=== PATIENT | female | born 1950 | race Hispanic/Latino ===

== ENCOUNTER 2017-07-25 18:37 | Inpatient (IN) | payer MEDICARE, OTHER ==
[2017-07-25 19:10] LABS: #Basophils 0.1 thou/uL (0.0-0.2); #Eosinphils 0.3 thou/uL (0.0-0.7); #Lymphocytes 2.3 thou/uL (1.20-3.40); #Monocytes 0.5 thou/uL (0.11-0.59); #Neutrophils 4.3 thou/uL (1.40-6.50); %Basophils 0.7 % (0.0-1.0); %Eosinophils 3.5 % (0.0-10.0); %Lymphocytes 30.9 % (21.0-51.0); %Monocytes 6.5 % (0.0-10.0); %Neutrophils 58.4 % (42.0-75.0); Hemoglobin 6.4 g/dL (12.0-16.0); Mean Corpuscular HGB CONC 32.3 g/dL (32.0-36.0); Mean Corpuscular Hemoglobin 26.2 pg (27.0-31.0); Mean Corpuscular Volume 81.2 fl (81.0-99.0); Mean Platelet Volume 6.7 fL (7.4-10.4); Platelet Count 357 thou/uL (130-400); RBC Distribution Width 14.9 % (11.5-14.5); Red Blood Cell (RBC) Count 2.45 mill/uL (4.20-5.40); White Blood Cell (WBC) Count 7.4 thou/uL (4.8-10.8)
--- NOTE | 2017-07-25 19:28 | RAD ---
CHEST ONE VIEW: 07/25/17 HISTORY: Dyspnea. COMPARISON: None. FINDINGS: Enlarged cardiac silhouette. Bibasilar pleural and parenchymal changes. Adequate aeration of the uppe r lungs. No pneumothorax. IMPRESSION: Bibasilar pleural and parenchymal changes. POS: [facility]
[2017-07-25 19:32] LABS: ALT (SGPT) 20 U/L (8-55); AST (SGOT) 19 U/L (5-34); Albumin 3.1 g/dL (3.4-4.8); Alkaline Phosphatase 200 U/L (40-150); Anion Gap 12 mmol/L (10-20); BUN (Urea Nitrogen) 72 mg/dL (9.8-20.1); Bilirubin, Total Less than 0.2 mg/dL (0.2-1.2); Calc. Creatinine Clearance 0 mL/min (70-130); Calcium 8.5 mg/dL (7.8-10.44); Carbon Dioxide 21 mmol/L (23-31); Chloride 111 mmol/L (98-107); Estimated GFR-MDRD 21; Globulin 2.8 g/dL (2.4-3.5); Glucose 105 mg/dL (80-115); Potassium 4.4 mmol/L (3.5-5.1); Protein, Total 5.9 g/dL (6.0-8.3); Sodium 140 mmol/L (136-145)
[2017-07-25 19:35] LABS: CKMB 3.9 ng/mL (0-6.6); Troponin I 0.013 ng/mL (< 0.028)
[2017-07-25] MEDS ORDERED: HYDROcodone/Acetaminophen 5/325 mg Tablet ONE (20:56)
[2017-07-25 22:32] LABS: Troponin I 0.012 ng/mL (< 0.028)
[2017-07-25] MEDS ORDERED: Ondansetron HCl/PF 4 MG/2 ML Vial IVP PRN (22:58)
[2017-07-25] MEDS ORDERED: Ondansetron ODT 4 MG TAB SL PRN (22:58)
[2017-07-25] MEDS ORDERED: Albuterol Sulfate 2.5 mg/3 ml Neb NEB PRN (22:59)
[2017-07-25 23:13] VITALS: BMI 34.7
[2017-07-26] MEDS ORDERED: Ondansetron ODT 4 MG TAB PO PRN (00:59)
[2017-07-26] MEDS ORDERED: HumaLOG 300 UNITS/3 ML VIAL SC PRN ×2 (00:59)
[2017-07-26] MEDS ORDERED: Dextrose 5% in Water 1,000 ML IV PRN (00:59)
[2017-07-26] MEDS ORDERED: Milk Of Magnesia 30 ML UDCUP PO PRN (00:59)
[2017-07-26] MEDS ORDERED: Acetaminophen 325 MG TAB PO PRN (00:59)
[2017-07-26] MEDS ORDERED: Ondansetron HCl/PF 4 MG/2 ML Vial IVP PRN (00:59)
[2017-07-26] MEDS ORDERED: hydrALAZINE 20 MG/ML VIAL SLOW IVP PRN (00:59)
[2017-07-26] MEDS ORDERED: Dextrose 50% Abboject 50 ML SYRINGE SLOW IVP PRN (00:59)
--- NOTE | 2017-07-26 01:26 | HP ---
PRIMARY CARE PHYSICIAN: Dr. Grady. CHIEF COMPLAINT: Shortness of breath. HISTORY OF PRESENT ILLNESS: Ms. Velasquez is a pleasant 66-year-old female that has a history of diabetes , hypertension, and recent femur fracture. She was in her usual state of health until the last coupl e of days. She noticed that she was getting increasing shortness of breath. She says she has a hist ory of asthma and she was trying to use her inhalers, but it was not helping. She figured something was wrong because something like this that happened very similar back in November where she was short o f breath as she thought it was an asthma attack. She had gone to the emergency room and found that s he was severely anemic and was "possibly losing blood." She says that she had a workup and where the y did a colonoscopy and did not find anything and she was scheduled to have a camera test as an outpa tient with Dr. Tadeo, but she ended up going into the hospital and had to reschedule and then when sh e rescheduled the day that she was getting ready to go, she actually fell outside [facility] and b roke her femur and was never able to get the camera test done. She also says that she sees Dr. Young lambert with regards to her kidney disease and he says that she had lab work recently and was told that her kidney function was "fine" and she has also seen Dr. Ca with regards to possible congestive heart failure. She says that she had a stress test done in his office and was told "everything was f ine." When she was seen in the emergency room here, she was found to be anemic once again with hemog lobin of 6.4 and she is being admitted for symptomatic anemia. REVIEW OF SYSTEMS: Constitutional: There are no fevers, chills, no night sweats, no weight loss. H EENT: No headache, no dizziness, no visual changes, no sore throat, rhinorrhea, neck pain, no adenop athy. Pulmonary: No hemoptysis, no cough, no wheezing. Cardiovascular: She denies any chest pain, but she has had shortness of breath on exertion, but no PND, no orthopnea. Gastrointestinal: She d enies abdominal pain, no nausea, no vomiting, no hematemesis, no melena, no bright red blood per rect um. Genitourinary: No urinary frequency, hematuria, no hesitancy. Neurologic: No focal weakness, numbness, no seizures. Musculoskeletal: She had the femur fracture. She has only recently started taking some steps. She had been primarily wheelchair bound prior to that. Skin and Integument: No skin changes. No rash. Psychiatric: No symptoms of anxiety or depression. PAST MEDICAL HISTORY: Significant for diabetes mellitus, hyperlipidemia, hypertension and left femur fracture as well as asthma. PAST SURGICAL HISTORY: She had repair of the left femur fracture as well as the breast lump removal about 30 years ago. ALLERGIES: No known drug allergies. SOCIAL HISTORY: She is a nonsmoker, nondrinker. She is . She would like to be a FULL code. Her , Ren, is her surrogate decision maker. She has 7 children. FAMILY HISTORY: Significant for diabetes mellitus in a sister and a mother with depression. CURRENT MEDICATIONS: Include aspirin 325 mg daily, metolazone 5 mg daily, iron 65 mg twice a day, gl ipizide 5 mg a day, atorvastatin 40 mg daily, metoprolol 25 mg twice a day, [place] 5/325 one to two ta blets q.6 hours as needed, hydralazine 25 mg 3 times a day, amlodipine 10 mg daily, furosemide 40 mg twice a day, alendronate 70 mg daily. PHYSICAL EXAMINATION: GENERAL: She is alert and oriented. She appears to be in no acute distress. VITAL SIGNS: Blood pressure was 172/74, heart rate 97, respiratory rate of 20, temperature is 98.2. HEENT: Pupils are equal, round, and reactive. Extraocular muscles are intact. Her sclerae are anic teric. Throat, no erythema, no exudates. NECK: No adenopathy, no bruits. LUNGS: Clear except for some mild expiratory wheezing and this was scattered on both sides. CARDIOVASCULAR: She has a normal S1, S2. She had a grade 2/6 systolic murmur at the base. ABDOMEN: Soft, nontender, nondistended. Positive for bowel sounds. No rebound, no guarding. EXTREMITIES: There is trace edema. NEUROLOGICALLY: The exam is nonfocal. LABORATORY RESULTS: White blood cell count 7.4, hemoglobin 6.4, hematocrit 19.9, platelet count 357, and D-dimer was 2.15. Sodium 140, potassium 4.4, chloride is 110, CO2 is 21, BUN of 72, creatinine 2.36, glucose is 105. Troponin is 0.012. She had a chest x-ray with some bilateral pleural and pare nchymal changes. EKG was sinus rhythm with some nonspecific ST wave changes. ASSESSMENT AND PLAN: 1. This is a pleasant 66-year-old female that presents to the emergency room with symptomatic anemia . The anemia is a normocytic anemia which has been recognized back in November and is currently in the process of being evaluated. Unfortunately, it was interrupted by the patient fractured her femur. She will be admitted and transfused to get her hemoglobin to 7.5 to 8. If she is feeling clinically improved after transfusion, then likely she can be discharged home. It appears as if the workup for the anemia is well underway. Capsule study cannot be done in hospital anyway and therefore, will nee d to be done as an outpatient. I explained to her if the capsule study is negative, then likely she should be referred to a vice president of instruction to assess for other potential causes for anemia. 2. Diabetes mellitus, we will continue her usual diabetes medications as well as sliding scale insul in. 3. Hypertension. Again, restart her antihypertensives as well as p.r.n. medications and asthma. Marlene gregory appears to have some wheezing on exam. Therefore, we will place her on scheduled DuoNebs, as well as p.r.n. as well.
[2017-07-26 01:47] LABS: Troponin I 0.016 ng/mL (< 0.028)
[2017-07-26 06:27] LABS: #Basophils 0.1 thou/uL (0.0-0.2); #Eosinphils 0.2 thou/uL (0.0-0.7); #Lymphocytes 2.7 thou/uL (1.20-3.40); #Monocytes 0.7 thou/uL (0.11-0.59); #Neutrophils 3.8 thou/uL (1.40-6.50); %Basophils 0.7 % (0.0-1.0); %Eosinophils 3.1 % (0.0-10.0); %Lymphocytes 35.7 % (21.0-51.0); %Neutrophils 51.5 % (42.0-75.0); Hemoglobin 8.7 g/dL (12.0-16.0); Mean Corpuscular HGB CONC 32.6 g/dL (32.0-36.0); Mean Corpuscular Hemoglobin 27.5 pg (27.0-31.0); Mean Corpuscular Volume 84.3 fl (81.0-99.0); Mean Platelet Volume 7.1 fL (7.4-10.4); Platelet Count 310 thou/uL (130-400); RBC Distribution Width 14.5 % (11.5-14.5); Red Blood Cell (RBC) Count 3.15 mill/uL (4.20-5.40); White Blood Cell (WBC) Count 7.5 thou/uL (4.8-10.8)
[2017-07-26] MEDS: Famotidine 20 MG TAB PO SCH (09:54)
[2017-07-26] MEDS ORDERED: Acetaminophen/Codeine 30-300mg Tablet PO PRN (10:28)
[2017-07-26] MEDS ORDERED: Amlodipine 10 MG TAB PO SCH (11:00)
[2017-07-26] MEDS ORDERED: Metoprolol Tartrate 25 MG TAB PO SCH (11:00)
[2017-07-26] MEDS ORDERED: Metolazone 5 MG TAB PO SCH (11:00)
[2017-07-26] MEDS: hydrALAZINE 25 MG TAB PO SCH ×2 (14:01→19:42)
[2017-07-26] MEDS: Acetaminophen/Codeine 30-300mg Tablet PO PRN ×2 (14:08→21:25)
[2017-07-26 14:55] LABS: Anion Gap 12 mmol/L (10-20); BUN (Urea Nitrogen) 66 mg/dL (9.8-20.1); Calc. Creatinine Clearance 32 mL/min (70-130); Calcium 8.4 mg/dL (7.8-10.44); Carbon Dioxide 21 mmol/L (23-31); Chloride 110 mmol/L (98-107); Estimated GFR-MDRD 21; Glucose 186 mg/dL (80-115); Potassium 4.3 mmol/L (3.5-5.1); Sodium 139 mmol/L (136-145)
--- NOTE | 2017-07-26 15:07 | PDOC.EVN ---
Event Note - Event Note Event Note: Chart reviewed, pt seen and examined. Feels better after pRBC transfusion. Lungs CTA. Discussed with Dr. Guerrero, pt to have video study as outpatient. Chronicity of renal failure unclear, will provide hydration and check. Will obtain records from PCP's office.
--- NOTE | 2017-07-26 15:18 | RAD ---
ABDOMEN 1 VIEW: Date: 07/26/17 HISTORY: Recurrent anemia. Negative EGD and colonoscopy. FINDINGS/IMPRESSION: Bowel gas pattern is unremarkable. There is fecal material in the colon. There are degenerative mary es in the spine. POS: [facility]
[2017-07-26] MEDS: Sodium Chloride 0.9% 1,000 ML IV SCH (16:06)
[2017-07-26] MEDS: Ferrous Sulfate 325 MG TAB PO SCH (19:42)
[2017-07-26] MEDS: Metoprolol Tartrate 25 MG TAB PO SCH (19:43)
[2017-07-26] MEDS: Furosemide 40 MG TAB PO SCH (19:43)
[2017-07-26] MEDS: Atorvastatin Calcium 40 MG TAB PO SCH (19:43)
--- NOTE | 2017-07-26 20:34 | CON ---
DATE OF CONSULTATION: 07/26/2017 The patient also has been in this hospital under Jasvir Monreal and under 2 different medical r ecord numbers. REASON FOR CONSULTATION: Anemia. HISTORY OF PRESENT ILLNESS: Ms. Monreal is a 66-year-old female, who was admitted to the hospital [facility] this morning after presenting to the emergency room last evening with complaints of shortness of breath. This got worse over the past 3 weeks. She was found to be severely anemic with a hemoglobi n of 6.4 and was admitted to the hospital. Her MCV was 81, white count 7.4, platelet count 357. BUN and creatinine were 72 and 2.36. Her sodium was 140, potassium was 4.4, bilirubin was 0.2, AST and ALT were 19 and 20, alkaline phosphatase 200, protein 5.9, albumin 3.1. She was without any nausea, vomiting, diarrhea, melena, hematochezia, or hematemesis. She was having increasing shortness of nahid ath and was not able to use her inhalers and it was not improving. She reports she has had lifelong asthma. Here at the hospital, she has had a heme-negative stool. We have been asked to reevaluate h er. She was admitted to the hospital in April with a femur fracture. At that hospitalization, her hemoglobin had been 6 on presentation as well. She was here, and again in late April, with acute congestive heart failure, diastolic dysfunction, possible pneumonia as well. In 11/2016, she underwe nt an upper and lower endoscopy with Dr. Samir Tadeo. It showed normal esophagogastroduodenoscopy. Biopsies were negative for celiac disease. Her colonoscopy was notable for 5 polyps ranging in siz e from 6 to 4 mm. These were removed and found to be benign adenomas. It was recommended she repeat colonoscopy in 3 years. Also, it was recommended that she have a capsule endoscopy of the small bow el with regard to recurrent iron deficiency anemia, but her falls and exacerbations of breathing issu es led her to cancel those procedures. Presently, again, she is eating and drinking without pain. She has no nausea or vomiting. She has h ad no diarrhea. She has had no melena. She has had heme-negative stool here this admission. PAST MEDICAL HISTORY: 1. History of moderate intermittent asthma. 2. History of chronic iron deficiency anemia of unclear etiology with no overt signs of bleeding, no signs of celiac disease. She does take aspirin at times. She denies other NSAIDs. 3. Diabetes, history of diabetic nephropathy. 4. Hypertension. 5. Diastolic heart failure 6. Chronic kidney disease. PAST SURGICAL HISTORY: Hysterectomy, breast surgery, femur fracture, breast lump removal 30 years ag o, and endoscopy in 11/2016. SOCIAL HISTORY: She does not smoke. She does not drink or use drugs. MEDICATIONS: Presently at home include prednisone, hydralazine, glipizide, Protonix, metoprolol, Scott tus insulin, Neurontin, Folvite, iron, B12, Omnicef, Lipitor, aspirin, Norvasc. PRESENT MEDICATIONS HERE IN THE HOSPITAL: Include Tylenol, Fosamax, Norvasc, DuoNeb, Lipitor, iron, Pepcid, Apresoline, Humalog, milk of magnesia, Lopressor, Zofran, Zaroxolyn. PHYSICAL EXAMINATION: GENERAL: Patient is resting comfortably in bed. She is in no distress. VITAL SIGNS: Temperature is 96, pulse 92, blood pressure 182/73, respirations 18-24. LUNGS: Clear with slight expiratory wheezing. HEART: Regular rate and rhythm. ABDOMEN: Soft, nontender, no palpable hepatomegaly. EXTREMITIES: No clubbing, cyanosis, or edema. LABORATORY STUDIES: As per HPI. ASSESSMENT: Anemia of unclear etiology. She is heme negative. On previous admissions, she has been diagnosed as iron deficient dating back to 2016. RECOMMENDATIONS: Avoid all NSAIDs, replace iron, and I would place her on a PPI. There has been no overt bleeding. I have encouraged her to follow up with us in the outpatient when she is discharged for a capsule endoscopy of the small bowel. In the meantime, since she has dropped hemoglobin again, we will obtain a small bowel follow-through to rule out any obvious small bowel lesions.
[2017-07-26] MEDS ORDERED: Non-Formulary Item 1 EACH (Iron [Iron] 18 MG) PO SCH (21:00)
[2017-07-27] MEDS: Sodium Chloride 0.9% 1,000 ML IV SCH (05:07)
[2017-07-27] MEDS: Furosemide 40 MG TAB PO SCH ×2 (11:42→21:11)
[2017-07-27] MEDS: Famotidine 20 MG TAB PO SCH (11:42)
[2017-07-27] MEDS: Amlodipine 10 MG TAB PO SCH (11:42)
[2017-07-27] MEDS: Metolazone 5 MG TAB PO SCH (11:42)
[2017-07-27] MEDS: Metoprolol Tartrate 25 MG TAB PO SCH ×2 (11:47→21:11)
[2017-07-27] MEDS: Ferrous Sulfate 325 MG TAB PO SCH ×2 (11:47→21:11)
[2017-07-27] MEDS: glipiZIDE 5 MG TAB PO SCH (11:47)
[2017-07-27] MEDS: Aspirin 325 mg Enteric Coated Tablet PO SCH (11:47)
[2017-07-27] MEDS: hydrALAZINE 25 MG TAB PO SCH ×3 (11:48→21:10)
[2017-07-27] MEDS: Acetaminophen/Codeine 30-300mg Tablet PO PRN (12:08)
--- NOTE | 2017-07-27 12:22 | RAD ---
SMALL BOWEL FOLLOW THROUGH: History: Small bowel masses. FINDINGS: The preliminary consulting hr professional film shows a moderate amount of stool within the right colon. The small bowel t ransit time was approximately 2 hours. Small bowel folds and caliber were normal. No masses are ident ified. The terminal ileum is obscured by overlapping bowel loops. No small bowel fold thickening or o ther findings. IMPRESSION: Unremarkable small bowel follow through. POS: [facility]
[2017-07-27 13:08] LABS: Band 5 % (5-11); Eosinophils 1 % (0-10); Hemoglobin 8.6 g/dL (12.0-16.0); Lymphocytes 23 % (21-51); MDiff Complete? YES; Mean Corpuscular HGB CONC 33.2 g/dL (32.0-36.0); Mean Corpuscular Hemoglobin 28.1 pg (27.0-31.0); Mean Corpuscular Volume 84.8 fl (81.0-99.0); Mean Platelet Volume 6.8 fL (7.4-10.4); Monocytes 3 % (0-10); Neutrophil 68 % (42-75); PLT Morphology Comment Appears Adequate; Platelet Count 261 thou/uL (130-400); Polychromasia SLIGHT = 2-3 cells (100X) (0-2/hpf); RBC Distribution Width 14.5 % (11.5-14.5); Red Blood Cell (RBC) Count 3.06 mill/uL (4.20-5.40); White Blood Cell (WBC) Count 7.1 thou/uL (4.8-10.8)
[2017-07-27 13:16] LABS: Anion Gap 13 mmol/L (10-20); BUN (Urea Nitrogen) 60 mg/dL (9.8-20.1); Calc. Creatinine Clearance 35 mL/min (70-130); Carbon Dioxide 20 mmol/L (23-31); Chloride 108 mmol/L (98-107); Estimated GFR-MDRD 22; Glucose 127 mg/dL (80-115); Potassium 3.8 mmol/L (3.5-5.1); Sodium 137 mmol/L (136-145)
--- NOTE | 2017-07-27 14:23 | PDOC.PN ---
- Subjective Encounter Start Date: 07/27/17 Encounter Start Time: 08:40 Pt seen for followup re: anemia. Denies chest pain, shortness of breath, fevers or chills. - Objective Resuscitation Status: Resuscitation Status FULL:Full Resuscitation MAR Reviewed: Yes Vital Signs & Weight: Vital Signs (12 hours) Temp Pulse Resp BP BP BP Pulse Ox 07/27/17 13:35 76 18 07/27/17 11:48 88 184/79 H 07/27/17 11:46 97.7 F 82 16 184/79 H 97 07/27/17 11:42 88 184/79 H 07/27/17 08:00 97.6 F 88 22 H 95 07/27/17 07:34 97.6 F 88 22 H 180/77 H 95 07/27/17 07:00 88 20 07/27/17 04:00 97.9 F 90 16 155/69 H 94 L Weight Weight 192 lb 12.8 oz I&O: 07/26/17 07/27/17 07/28/17 06:59 06:59 06:59 Intake Total 700 1080 Output Total 300 Balance 400 1080 Result Diagrams: 07/27/17 12:47 07/27/17 12:47 Additional Labs: Accuchecks 07/27/17 07/26/17 07/26/17 06:15 20:31 15:49 POC Glucose 127 H 189 H 186 H 07/26/17 07/26/17 06:12 00:48 POC Glucose 118 H 117 H EKG Reviewed by me: Yes (Tele: NSR) Phys Exam - Physical Examination Obese HEENT: moist MMs, sclera anicteric, oral pharynx no lesions, 2+ tonsils Neck: no nodes, no JVD, supple, full ROM Respiratory: no wheezing, no rales, no rhonchi, clear to auscultation bilateral Cardiovascular: RRR, no rub Gastrointestinal: soft Neurological: moves all 4 limbs Psychiatric: normal affect, A&O x 3 Dx/Plan (1) Anemia Code(s): D64.9 - ANEMIA, UNSPECIFIED Status: Acute Comment: stable, SBFT normal. (2) Acute on chronic renal failure Code(s): N17.9 - ACUTE KIDNEY FAILURE, UNSPECIFIED; N18.9 - CHRONIC KIDNEY DISEASE, UNSPECIFIED Status: Acute Comment: Chronicity unclear, await records from PCP office and from lab. (3) DM2 (diabetes mellitus, type 2) Status: Chronic Comment: continue accuchecks, insulin sliding scale. (4) HTN (hypertension) Code(s): I10 - ESSENTIAL (PRIMARY) HYPERTENSION Status: Chronic Comment: Monitor vital signs, titrate antihypertensives as needed. (5) Asthma Code(s): J45.909 - UNSPECIFIED ASTHMA, UNCOMPLICATED Status: Chronic Comment : stable - Plan * . Review of Systems - Review of Systems Constitutional: negative: fever, chills, sweats, weakness, malaise Respiratory: negative: Cough, Shortness of Breath, SOB with Excertion, Pleuritic Pain, Wheezing Cardiovascular: negative: chest pain, palpitations, orthopnea, paroxysmal nocturnal dyspnea, edema, light headedness Skin: negative: Rash, Lesions, Lit, Bruising, Other Neurological: negative: Weakness, Numbness, Incoordination, Change in Speech, Confusion, Seizures - Medications/Allergies Allergies/Adverse Reactions: Allergies Allergy/AdvReac Type Severity Reaction Status Date / Time No Known Allergies Allergy Verified 07/25/17 23:20 Medications: Current Medications Acetaminophen (Tylenol) 650 mg PO Q4H PRN PRN Reason: Headache/Fever or Pain Last Admin: 07/26/17 09:54 Dose: 650 mg Acetaminophen/Codeine Phosphate (Tylenol #3) 2 tab PO Q6H PRN PRN Reason: Moderate Pain (4-6) Last Admin: 07/27/17 12:08 Dose: 2 tab Acetaminophen/Codeine Phosphate (Tylenol #3) 1 tab PO Q6H PRN PRN Reason: Mild Pain (1-3) Albuterol/Ipratropium (Duoneb) 3 ml NEB [id number] [facility] Last Admin: 07/27/17 13:35 Dose: 3 ml Alendronate Sodium (Fosamax) 70 mg PO Mo@0600 [facility] Amlodipine Besylate (Norvasc) 10 mg PO DAILY [facility] Last Admin: 07/27/17 11:42 Dose: 10 mg Aspirin (Ecotrin) 325 mg PO DAILY [facility] Last Admin: 07/27/17 11:47 Dose: 325 mg Atorvastatin Calcium (Lipitor) 40 mg PO HS [facility] Last Admin: 07/26/17 19:43 Dose: 40 mg Dextrose/Water (Dextrose 50%) 25 gm SLOW IVP PRN PRN PRN Reason: Hypoglycemia Famotidine (Pepcid) 20 mg PO DAILY [facility] Last Admin: 07/27/17 11:42 Dose: 20 mg Ferrous Sulfate (Feosol) 325 mg PO BID [facility] Last Admin: 07/27/17 11:47 Dose: 325 mg Furosemide (Lasix) 40 mg PO BID [facility] Last Admin: 07/27/17 11:42 Dose: 40 mg Glipizide (Glucotrol) 5 mg PO DAILY-AC [facility] Last Admin: 07/27/17 11:47 Dose: 5 mg Glucagon (Glucagon) 1 mg IM PRN PRN PRN Reason: Hypoglycemia Hydralazine HCl (Apresoline) 10 mg SLOW IVP Q4H PRN PRN Reason: Systolic BP > 180 Hydralazine HCl (Apresoline) 25 mg PO TID [facility] Last Admin: 07/27/17 11:48 Dose: 25 mg Dextrose/Water (D5w) 1,000 mls @ 0 mls/hr IV .Q0M PRN; As Directed PRN Reason: Hypoglycemia Sodium Chloride (Normal Saline 0.9%) 1,000 mls @ 70 mls/hr IV .[id number] [facility] Last Admin: 07/27/17 05:07 Dose: Not Given Insulin Human Lispro (Humalog) 0 units SC .MODERATE SLIDING SC PRN PRN Reason: Moderate Correctional Scale Last Admin: 07/26/17 18:20 Dose: 2 unit Insulin Human Lispro (Humalog) 0 units SC .BEDTIME SLIDING SC PRN PRN Reason: Bedtime Correctional Scale Magnesium Hydroxide (Milk Of Magnesium) 30 ml PO DAILYPRN PRN PRN Reason: Constipation Metolazone (Zaroxolyn) 5 mg PO DAILY [facility] Last Admin: 07/27/17 11:42 Dose: 5 mg Metoprolol Tartrate (Lopressor) 25 mg PO BID [facility] Last Admin: 07/27/17 11:47 Dose: 25 mg Ondansetron HCl (Zofran Odt) 4 mg PO Q6H PRN PRN Reason: Nausea/Vomiting Ondansetron HCl (Zofran) 4 mg IVP Q6H PRN PRN Reason: Nausea/Vomiting Sodium Chloride (Flush - Normal Saline) 10 ml IVF Q12HR [facility] Last Admin: 07/27/17 11:47 Dose: 10 ml Sodium Chloride (Flush - Normal Saline) 10 ml IVF PRN PRN PRN Reason: Saline Flush
--- NOTE | 2017-07-27 20:55 | PRG ---
DATE OF SERVICE: 07/27/2017 SUBJECTIVE: Ms. Monreal has had no overt bleeding. She had a small bowel-through today which was o pacheco. OBJECTIVE: VITAL SIGNS: Temperature 98.0, pulse 80, blood pressure 191/80. GENERAL: She is in no acute distress. LUNGS: Clear to auscultation bilaterally. HEART: Regular rate and rhythm. ABDOMEN: Soft, nontender, nondistended, bowel sounds are present. EXTREMITIES: No lower extremity edema. IMPRESSION: Anemia with history of iron deficiency. Her hemoglobin is stable at 8.6 from yesterday. She did receive transfusion on 07/25/2017. Her hemoglobin was up from 6.4 at that time. She has h ad no overt bleeding. She had prior EGD and colonoscopy and capsule endoscopy has been advised as an outpatient. She has had various problems getting this performed since she has had multiple hospital izations with respiratory issues and a broken femur. She states that she will work on getting this s cheduled as an outpatient. We will call to do this. Small bowel x-ray today was normal. RECOMMENDATIONS: 1. She will follow up as an outpatient to schedule capsule endoscopy. 2. I will sign off for now. Please call if GI can be of assistance.
[2017-07-27] MEDS: Atorvastatin Calcium 40 MG TAB PO SCH (21:10)
[2017-07-28] MEDS: Sodium Chloride 0.9% 1,000 ML IV SCH (01:36)
[2017-07-28 05:45] LABS: Anion Gap 12 mmol/L (10-20); BUN (Urea Nitrogen) 59 mg/dL (9.8-20.1); Calc. Creatinine Clearance 34 mL/min (70-130); Calcium 8.1 mg/dL (7.8-10.44); Carbon Dioxide 20 mmol/L (23-31); Chloride 108 mmol/L (98-107); Estimated GFR-MDRD 21; Glucose 97 mg/dL (80-115); Potassium 4.2 mmol/L (3.5-5.1); Sodium 136 mmol/L (136-145)
[2017-07-28 06:44] LABS: Band 9 % (5-11); Eosinophils 7 % (0-10); Hemoglobin 8.2 g/dL (12.0-16.0); Lymphocytes 19 % (21-51); MDiff Complete? YES; Mean Corpuscular HGB CONC 31.9 g/dL (32.0-36.0); Mean Corpuscular Hemoglobin 26.9 pg (27.0-31.0); Mean Corpuscular Volume 84.5 fl (81.0-99.0); Mean Platelet Volume 7.4 fL (7.4-10.4); Monocytes 4 % (0-10); Neutrophil 61 % (42-75); Platelet Count 289 thou/uL (130-400); RBC Distribution Width 14.6 % (11.5-14.5); Red Blood Cell (RBC) Count 3.06 mill/uL (4.20-5.40); White Blood Cell (WBC) Count 6.9 thou/uL (4.8-10.8)
[2017-07-28] MEDS: Famotidine 20 MG TAB PO SCH (08:22)
[2017-07-28] MEDS: Aspirin 325 mg Enteric Coated Tablet PO SCH (08:22)
[2017-07-28] MEDS: Metolazone 5 MG TAB PO SCH (08:22)
[2017-07-28] MEDS: Metoprolol Tartrate 25 MG TAB PO SCH ×2 (08:22→20:14)
[2017-07-28] MEDS: Furosemide 40 MG TAB PO SCH ×2 (08:22→20:14)
[2017-07-28] MEDS: glipiZIDE 5 MG TAB PO SCH (08:23)
[2017-07-28] MEDS: Amlodipine 10 MG TAB PO SCH (08:23)
[2017-07-28] MEDS: hydrALAZINE 25 MG TAB PO SCH ×3 (08:24→20:14)
[2017-07-28] MEDS: Ferrous Sulfate 325 MG TAB PO SCH ×2 (08:24→20:14)
[2017-07-28] MEDS: Acetaminophen/Codeine 30-300mg Tablet PO PRN (09:40)
[2017-07-28] MEDS ORDERED: Furosemide 20 MG/2 ML VIAL SLOW IVP SCH (10:45)
[2017-07-28] MEDS: Atorvastatin Calcium 40 MG TAB PO SCH (20:14)
--- NOTE | 2017-07-28 21:56 | DIS ---
PRIMARY CARE PHYSICIAN: Dickson Grady M.D. DATE OF ADMISSION: 07/25/2017 DATE OF DISCHARGE: 07/28/2017 DISCHARGE DIAGNOSES: 1. Anemia. 2. Chronic kidney disease. CONDITION OF PATIENT AT THE TIME OF DISCHARGE: Stable. I assessed Ms. Monreal on the day of discha rge. She denies any chest pain or shortness of breath. Vital signs are stable. S1 and S2 are heard , regular. She has occasional expiratory wheeze. DISCHARGE MEDICATIONS: Her preadmission home medications as dictated on history and physical note fr 07/25 were resumed. In addition, she is being discharged home on Medrol Dosepak. CONSULTATIONS DURING THIS HOSPITALIZATION: Gastroenterology, Dr. Guerrero. HOSPITAL COURSE: Ms. Monreal is a pleasant 66-year-old lady who was admitted to [facility] on 07/25/2017 for anemia. At the time of admission, she had hemoglobin of 6.4. She r eceived packed RBC transfusions. She was seen by Gastroenterology Service. She will be seen by [facility] as outpatient for video capsule endoscopy. Her creatinine was elevated during this hospitalization. After reviewing the external records, which was felt that her creatinine was at baseline, 2.30 on 07/28/2017. She had an elevated creatinine in early July as well. She is advised to follow up with her information technology associate. She reported on and off shortness of breath. She had occasional expiratory wheeze on physical exam. She has been started on steroids and advised to continue the use of bronchodilators. On the day of discharge, she has white count 6900, hemoglobin 8.2, platelet count 289,000, normal sod ium, normal potassium, blood urea nitrogen 59 and creatinine 2.30. She received a total of 2 units packed RBC transfusion during this hospitalization. Many thanks for allowing me to participate in your patient's care. Please feel free to contact me wi th any questions or concerns. DISCHARGE DESTINATION: Home. TOTAL AMOUNT OF TIME SPENT COORDINATING THIS DISCHARGE: 33 minutes.
--- NOTE | 2017-07-29 07:18 | PDOC.PN ---
- Subjective Encounter Start Date: 07/28/17 (late entry) Encounter Start Time: 14:00 Pt seen for followup re: HALEY. No chest pain, shortness of breath, fevers or chills. - Objective Resuscitation Status: Resuscitation Status FULL:Full Resuscitation MAR Reviewed: Yes Vital Signs & Weight: Vital Signs (12 hours) Temp Pulse Resp BP BP Pulse Ox 07/29/17 04:00 98.1 F 87 20 145/63 H 94 L 07/28/17 23:41 94 L 07/28/17 20:14 97.5 F L 87 20 177/70 H 97 07/28/17 20:00 97.5 F L 87 20 177/70 H 97 07/28/17 19:22 94 L Weight Weight 191 lb I&O: 07/28/17 07/29/17 07/30/17 06:59 06:59 06:59 Intake Total 1690 1290 Output Total 1150 1650 Balance 540 -360 Result Diagrams: 07/28/17 04:08 07/28/17 04:08 Additional Labs: Accuchecks 07/29/17 07/28/17 07/28/17 06:03 21:04 15:50 POC Glucose 134 H 116 H 105 07/28/17 11:28 POC Glucose 84 EKG Reviewed by me: Yes (Tele: NSR) Phys Exam - Physical Examination Constitutional: NAD HEENT: moist MMs Neck: supple Respiratory: clear to auscultation bilateral Cardiovascular: RRR Gastrointestinal: soft Neurological: moves all 4 limbs Psychiatric: normal affect Dx/Plan (1) Anemia Code(s): D64.9 - ANEMIA, UNSPECIFIED Status: Acute Comment: stable (2) Acute on chronic renal failure Code(s): N17.9 - ACUTE KIDNEY FAILURE, UNSPECIFIED; N18.9 - CHRONIC KIDNEY DISEASE, UNSPECIFIED Status: Acute Comment: Chronicity unclear (3) DM2 (diabetes mellitus, type 2) Status: Chronic Comment: continue accuchecks, insulin sliding scale. (4) HTN (hypertension) Code(s): I10 - ESSENTIAL (PRIMARY) HYPERTENSION Status: Chronic Comment: titrate antihypertensives as needed. (5) Asthma Code(s): J45.909 - UNSPECIFIED ASTHMA, UNCOMPLICATED Status: Chronic Comment : stable - Plan * . Likely home later today or tomorrow Review of Systems - Review of Systems Constitutional: negative: fever, chills, sweats, weakness, malaise Cardiovascular: negative: chest pain, palpitations, orthopnea, paroxysmal nocturnal dyspnea, edema, light headedness - Medications/Allergies Allergies/Adverse Reactions: Allergies Allergy/AdvReac Type Severity Reaction Status Date / Time No Known Allergies Allergy Verified 07/25/17 23:20 Medications: Current Medications Acetaminophen (Tylenol) 650 mg PO Q4H PRN PRN Reason: Headache/Fever or Pain Last Admin: 07/26/17 09:54 Dose: 650 mg Acetaminophen/Codeine Phosphate (Tylenol #3) 2 tab PO Q6H PRN PRN Reason: Moderate Pain (4-6) Last Admin: 07/28/17 09:40 Dose: 2 tab Acetaminophen/Codeine Phosphate (Tylenol #3) 1 tab PO Q6H PRN PRN Reason: Mild Pain (1-3) Albuterol/Ipratropium (Duoneb) 3 ml NEB [id number] [facility] Last Admin: 07/28/17 23:41 Dose: 3 ml Alendronate Sodium (Fosamax) 70 mg PO Mo@0600 [facility] Amlodipine Besylate (Norvasc) 10 mg PO DAILY [facility] Last Admin: 07/28/17 08:23 Dose: 10 mg Aspirin (Ecotrin) 325 mg PO DAILY [facility] Last Admin: 07/28/17 08:22 Dose: 325 mg Atorvastatin Calcium (Lipitor) 40 mg PO HS [facility] Last Admin: 07/28/17 20:14 Dose: 40 mg Dextrose/Water (Dextrose 50%) 25 gm SLOW IVP PRN PRN PRN Reason: Hypoglycemia Famotidine (Pepcid) 20 mg PO DAILY [facility] Last Admin: 07/28/17 08:22 Dose: 20 mg Ferrous Sulfate (Feosol) 325 mg PO BID [facility] Last Admin: 07/28/17 20:14 Dose: 325 mg Furosemide (Lasix) 40 mg PO BID [facility] Last Admin: 07/28/17 20:14 Dose: 40 mg Glipizide (Glucotrol) 5 mg PO DAILY[facility] Last Admin: 07/28/17 08:23 Dose: 5 mg Glucagon (Glucagon) 1 mg IM PRN PRN PRN Reason: Hypoglycemia Hydralazine HCl (Apresoline) 10 mg SLOW IVP Q4H PRN PRN Reason: Systolic BP > 180 Last Admin: 07/27/17 21:10 Dose: 10 mg Hydralazine HCl (Apresoline) 25 mg PO TID [facility] Last Admin: 07/28/17 20:14 Dose: 25 mg Dextrose/Water (D5w) 1,000 mls @ 0 mls/hr IV .Q0M PRN; As Directed PRN Reason: Hypoglycemia Insulin Human Lispro (Humalog) 0 units SC .MODERATE SLIDING SC PRN PRN Reason: Moderate Correctional Scale Last Admin: 07/26/17 18:20 Dose: 2 unit Insulin Human Lispro (Humalog) 0 units SC .BEDTIME SLIDING SC PRN PRN Reason: Bedtime Correctional Scale Magnesium Hydroxide (Milk Of Magnesium) 30 ml PO DAILYPRN PRN PRN Reason: Constipation Metolazone (Zaroxolyn) 5 mg PO DAILY [facility] Last Admin: 07/28/17 08:22 Dose: 5 mg Metoprolol Tartrate (Lopressor) 25 mg PO BID [facility] Last Admin: 07/28/17 20:14 Dose: 25 mg Ondansetron HCl (Zofran Odt) 4 mg PO Q6H PRN PRN Reason: Nausea/Vomiting Ondansetron HCl (Zofran) 4 mg IVP Q6H PRN PRN Reason: Nausea/Vomiting Sodium Chloride (Flush - Normal Saline) 10 ml IVF Q12HR [facility] Last Admin: 07/28/17 20:15 Dose: 10 ml Sodium Chloride (Flush - Normal Saline) 10 ml IVF PRN PRN PRN Reason: Saline Flush
[2017-07-29] MEDS: glipiZIDE 5 MG TAB PO SCH (07:38)
[2017-07-29 07:40] LABS: #Eosinphils 0.2 thou/uL (0.0-0.7); #Lymphocytes 1.3 thou/uL (1.20-3.40); #Monocytes 0.6 thou/uL (0.11-0.59); %Basophils 0.5 % (0.0-1.0); %Eosinophils 3.2 % (0.0-10.0); %Lymphocytes 18.2 % (21.0-51.0); %Monocytes 8.5 % (0.0-10.0); %Neutrophils 69.6 % (42.0-75.0); Mean Corpuscular HGB CONC 32.4 g/dL (32.0-36.0); Mean Corpuscular Hemoglobin 27.6 pg (27.0-31.0); Mean Corpuscular Volume 85.2 fl (81.0-99.0); Platelet Count 282 thou/uL (130-400); RBC Distribution Width 14.6 % (11.5-14.5); Red Blood Cell (RBC) Count 3.26 mill/uL (4.20-5.40); White Blood Cell (WBC) Count 7.1 thou/uL (4.8-10.8)
[2017-07-29 08:00] LABS: Anion Gap 13 mmol/L (10-20); BUN (Urea Nitrogen) 62 mg/dL (9.8-20.1); Calc. Creatinine Clearance 29 mL/min (70-130); Calcium 8.6 mg/dL (7.8-10.44); Carbon Dioxide 20 mmol/L (23-31); Chloride 108 mmol/L (98-107); Estimated GFR-MDRD 18; Glucose 113 mg/dL (80-115); Potassium 4.4 mmol/L (3.5-5.1); Sodium 137 mmol/L (136-145)
[2017-07-29] MEDS ORDERED: predniSONE 50 MG TAB PO SCH (08:15)
[2017-07-29] MEDS: Metolazone 5 MG TAB PO SCH (09:06)
[2017-07-29] MEDS: Metoprolol Tartrate 25 MG TAB PO SCH (09:06)
[2017-07-29] MEDS: hydrALAZINE 25 MG TAB PO SCH (09:06)
[2017-07-29] MEDS: Famotidine 20 MG TAB PO SCH (09:06)
[2017-07-29] MEDS: Ferrous Sulfate 325 MG TAB PO SCH (09:06)
[2017-07-29] MEDS: Amlodipine 10 MG TAB PO SCH (09:06)
[2017-07-29] MEDS: Furosemide 40 MG TAB PO SCH (09:06)
[2017-07-29] MEDS: Aspirin 325 mg Enteric Coated Tablet PO SCH (09:06)
[2017-07-29 11:32] VITALS: BP 155/70; TEMP 98.3
--- NOTE | 2017-07-29 20:30 | DIS ---
PRIMARY CARE PHYSICIAN: Dickson Grady M.D. DATE OF ADMISSION: 07/25/2017 DATE OF DISCHARGE: 07/28/2017 DISCHARGE DIAGNOSES: 1. Anemia. 2. Chronic kidney disease. CONDITION OF PATIENT AT THE TIME OF DISCHARGE: Stable. I assessed Ms. Monreal on the day of discha rge. She denies any complaints. Vital signs stable. S1 and S2 are heard, regular. Lungs are clear to auscultation bilaterally. Please note that discharge summary was dictated on 07/28/2017. Ms. Monreal was not discharged that day to ensure that she was clinically stable. She remained clinically stable. Her creatinine increa sed to 2.66, after she received an extra dose of furosemide on 07/28/2017. She has been advised to c hange her Lasix dosing to 40 mg daily for the next 3 days and then to resume 40 mg 2 times a day. Otherwise, her discharge medications remain the same as dictated on the discharge summary from 2017. She is advised to follow up with her welding pantograph operator as well as with her primary care physician upon dis charge. She is also advised to follow up with Gastroenterology Service for video capsule endoscopy. She will need her creatinine and electrolytes checked in 3-5 days. Many thanks for allowing me to participate in your patient's care. Please feel free to contact me wi th any questions or concerns. DISCHARGE DESTINATION: Home. TOTAL AMOUNT OF TIME SPENT COORDINATING THIS DISCHARGE: 25 minutes.
[2017-07-31] MEDS ORDERED: Alendronate Sodium 70 mg Tablet PO SCH (06:00)
== END 2017-07-29 13:18 | disposition home or self-care (01) | DRG 812 ==
LOC: ERS 18:37 → 2NO 20:44
PROVIDERS: ADMIT Family Medicine; ATTEND Family Medicine
PROC: 30233N1 Transfusion of Nonautologous Red Blood Cells into Peripheral Vein, Percutaneous Approach (ICD-10-PCS; principal; 2017-07-25)
DX: D64.9 Anemia, unspecified (principal); N17.9 Acute kidney failure, unspecified; E11.22 Type 2 diabetes mellitus with diabetic chronic kidney disease; I13.0 Hypertensive heart and chronic kidney disease with heart failure and stage 1 through stage 4 chronic kidney disease, or unspecified chronic kidney disease; I50.32 Chronic diastolic (congestive) heart failure; J45.20 Mild intermittent asthma, uncomplicated; N18.9 Chronic kidney disease, unspecified; Z79.899 Other long term (current) drug therapy; Z79.82 Long term (current) use of aspirin; Z79.891 Long term (current) use of opiate analgesic
CPT/HCPCS: 36415; 36416; 36430; 71045; 74018; 74250; 80048; 80053; 82274; 82553; 83880; 84484; 85007; 85025; 85027; 85379; 86850; 86900; 86901; 93005; 94640; 94760; 96360; A4216; J0360; J1940; J7611; J7620; P9016

== ENCOUNTER 2017-12-06 21:08 | Inpatient (IN) | payer MEDICARE, OTHER ==
--- NOTE | 2017-12-06 22:12 | RAD ---
PA AND LATERAL CHEST X-RAY 12/06/17 HISTORY: Chest pain and shortness of breath two days. Cough which started yesterday. COMPARISON: 07/25/17. FINDINGS: There is a small to moderate sized right and small left pleural effusion with atelectasis. Bilateral pleural effusions were also present on the prior exam. Overall, similar to that study. The cardiac si lhouette is magnified by projection but does appear mildly enlarged. Pulmonary vasculature is borderl ine increased. Vascular calcifications seen in the thoracic aorta. Degenerative changes are noted in the spine. IMPRESSION: Bilateral pleural effusions, overall similar to prior study. Cardiomegaly with borderline pulmonary v ascular congestion. POS: [facility]
[2017-12-06 23:13] LABS: #Eosinphils 0.2 thou/uL (0.0-0.7); #Lymphocytes 1.6 thou/uL (1.20-3.40); #Monocytes 0.6 thou/uL (0.11-0.59); #Neutrophils 4.4 thou/uL (1.40-6.50); %Basophils 0.5 % (0.0-1.0); %Eosinophils 2.9 % (0.0-10.0); %Lymphocytes 23.6 % (21.0-51.0); %Monocytes 8.1 % (0.0-10.0); %Neutrophils 64.9 % (42.0-75.0); Mean Corpuscular HGB CONC 33.9 g/dL (32.0-36.0); Mean Corpuscular Hemoglobin 26.5 pg (27.0-31.0); Mean Corpuscular Volume 78.2 fL (78.0-98.0); Mean Platelet Volume 7.6 fL (7.4-10.4); Platelet Count 305 thou/uL (130-400); RBC Distribution Width 14.7 % (11.5-14.5); Red Blood Cell (RBC) Count 3.02 mill/uL (4.20-5.40); White Blood Cell (WBC) Count 6.8 thou/uL (4.8-10.8)
[2017-12-06] MEDS ORDERED: methylPREDNISolone Sod Succ/PF 125 MG/2 ML VIAL ONE (23:21)
[2017-12-06 23:37] LABS: ALT (SGPT) 25 U/L (8-55); AST (SGOT) 34 U/L (5-34); Albumin 3.3 g/dL (3.4-4.8); Alkaline Phosphatase 233 U/L (40-150); Anion Gap 15 mmol/L (10-20); BUN (Urea Nitrogen) 95 mg/dL (9.8-20.1); Bilirubin, Total 0.2 mg/dL (0.2-1.2); CK (CPK) 243 U/L (29-168); Calc. Creatinine Clearance 0 mL/min (70-130); Calcium 8.4 mg/dL (7.8-10.44); Carbon Dioxide 17 mmol/L (23-31); Chloride 110 mmol/L (98-107); Estimated GFR-MDRD 8; Globulin 3.2 g/dL (2.4-3.5); Glucose 147 mg/dL (80-115); Potassium 4.4 mmol/L (3.5-5.1); Protein, Total 6.5 g/dL (6.0-8.3); Sodium 138 mmol/L (136-145)
[2017-12-06] MEDS ORDERED: Metoprolol Tartrate 25 MG TAB ONE (23:39)
[2017-12-06] MEDS ORDERED: hydrALAZINE 25 MG TAB ONE (23:39)
[2017-12-06 23:41] LABS: Troponin I Less than 0.010 ng/mL (< 0.028)
[2017-12-06 23:50] LABS: CKMB 7.6 ng/mL (0-6.6)
[2017-12-07] MEDS ORDERED: Acetaminophen 500 MG TAB ONE (00:48)
[2017-12-07] MEDS ORDERED: Furosemide 40 MG/4 ML VIAL ONE (01:05)
[2017-12-07] MEDS ORDERED: Dextrose 50% Abboject 50 ML SYRINGE SLOW IVP PRN (02:26)
[2017-12-07] MEDS ORDERED: HumaLOG 300 UNITS/3 ML VIAL SC PRN (02:26)
[2017-12-07] MEDS ORDERED: Dextrose 5% in Water 1,000 ML IV PRN (02:26)
[2017-12-07] MEDS ORDERED: Senokot 8.6 MG TAB PO PRN (02:29)
[2017-12-07] MEDS ORDERED: Acetaminophen 325 MG TAB PO PRN (02:29)
[2017-12-07] MEDS ORDERED: Bisacodyl 5 MG TAB PO PRN (02:29)
[2017-12-07 03:14] LABS: Iron 55 ug/dL (50-170); Iron Binding Capacity, Total 318 mcg/dL (265-497)
[2017-12-07 03:17] LABS: Troponin I 0.026 ng/mL (< 0.028)
[2017-12-07] MEDS: HYDROcodone/Acetaminophen 5/325 mg Tablet PO PRN ×2 (03:37→21:34)
[2017-12-07] MEDS: hydrALAZINE 20 MG/ML VIAL SLOW IVP PRN (05:34)
[2017-12-07 05:55] LABS: #Lymphocytes 0.6 thou/uL (1.20-3.40); #Monocytes 0.1 thou/uL (0.11-0.59); #Neutrophils 6.7 thou/uL (1.40-6.50); %Basophils 0.3 % (0.0-1.0); %Eosinophils 0.1 % (0.0-10.0); %Lymphocytes 7.7 % (21.0-51.0); %Monocytes 1.2 % (0.0-10.0); %Neutrophils 90.7 % (42.0-75.0); Hemoglobin 7.8 g/dL (12.0-16.0); Mean Corpuscular Hemoglobin 26.1 pg (27.0-31.0); Mean Platelet Volume 7.6 fL (7.4-10.4); Platelet Count 277 thou/uL (130-400); RBC Distribution Width 14.5 % (11.5-14.5); White Blood Cell (WBC) Count 7.4 thou/uL (4.8-10.8)
[2017-12-07 06:12] LABS: Albumin 3.1 g/dL (3.4-4.8); Anion Gap 17 mmol/L (10-20); BUN (Urea Nitrogen) 98 mg/dL (9.8-20.1); BUN/Creatinine Ratio 18.88; Calc. Creatinine Clearance 13 mL/min (70-130); Calcium 8.2 mg/dL (7.8-10.44); Carbon Dioxide 14 mmol/L (23-31); Chloride 110 mmol/L (98-107); Estimated GFR-MDRD 8; Glucose 208 mg/dL (80-115); Phosphorus 6.3 mg/dL (2.3-4.7); Potassium 4.6 mmol/L (3.5-5.1); Sodium 136 mmol/L (136-145)
--- NOTE | 2017-12-07 06:33 | HP ---
CHIEF COMPLAINT: Chest pain. HISTORIAN: The patient is somewhat reliable. HISTORY OF PRESENT ILLNESS: This is a 67-year-old female with past medical history of congestive heart failure, diabetes, hyperlipidemia, hypertension, renal failure who is presenting with chest pain. Per the patient , chest pain came on as heaviness in the chest last 2 days prior to the day of admission, patient stated that she has an appointment to see her eye doctor for some "eye injections." Patient stated that she cannot miss that appointment, therefore she decided to delay her visit to see a doctor for this heaviness in the chest. The patient's severity when chest pain came on was 7/10. It gets worse with exertion. The patient states that she has associated symptoms with shortness of breath. Pain was constant. Of note, on 07/25/2017, patient was seen in the hospital for progressive shortness of breath. The patient states that this shortness of breath has been ongoing and the patient stated that she was diagnosed with heart failure in the past. The patient is asthmatic and says that she uses inhalers. Patient also states that she has anemia and has been seen in the past for anemia. The patient states that her primary care doctor is Dr. Dickson Grady and her hydrometer calibrator is Dr. Ca and her renal doctor is Dr. Garrido. REVIEW OF SYSTEMS: Positive for chest pain, shortness of breath, and bilateral lower extremity pain with associated edema. Otherwise, as documented in the HPI , all other systems were reviewed and are negative. PAST MEDICAL HISTORY: Significant for diabetes mellitus, hyperlipidemia, hypertension, left femur fracture, asthma, CHF. PAST SURGICAL HISTORY: Patient has a left femur repair, lumpectomy about 30 years ago. ALLERGIES: No known drug allergies. SOCIAL HISTORY: Patient is a nonsmoker, nondrinker. Patient is , has 7 children. The patient is FULL CODE. FAMILY HISTORY: Significant for diabetes in the sister and mother with depression. MEDICATIONS: 1. Aspirin 325 daily. 2. Metolazone 5 mg oral once daily. 3. Iron 65 mg oral b.i.d. 4. Atorvastatin 40 mg oral daily. 5. Metoprolol 25 b.i.d. 6. [place] every 6 hours p.r.n. 7. Hydralazine 25 mg b.i.d. 8. Amlodipine 10 mg. 9. Furosemide 40 mg b.i.d. 10. Alendronate once a week. PHYSICAL EXAMINATION: VITAL SIGNS: Patient's blood pressure was 170/80, pulse 80, respiratory rate is 19, temperature 98, oxygen saturation 96% on room air. GENERAL APPEARANCE: Patient is lying in bed, does not appear to be in acute distress. The patient is speaking in full sentences. HEENT: Normocephalic, atraumatic. Pupils are equally round and reactive to light. Extraocular movements are intact. No scleral icterus. NECK: Supple. No JVDs. Trachea is midline. RESPIRATORY: The patient has mild wheezes at the anterior lung law. There are some rales at the lower bases bilaterally. Good symmetric chest movements. No reproducible tenderness. CARDIAC: Positive S1, S2. Regular rate and rhythm. ABDOMEN: Obese abdomen, nontender, nondistended. Positive bowel sounds. No ecchymosis noted. EXTREMITIES: Upper extremities and lower extremities: Patient has 2+ pitting edema. Patient has compression stockings bilaterally. Patient has tenderness on palpation of the lower extremities. Good dorsalis pedis pulses bilaterally. Upper extremity: 5/5 upper extremity strength with good sensation and good radial pulses bilaterally. NEUROLOGIC: Cranial nerves II through XII grossly intact. No neurologic deficits noted. SKIN: Dry, warm, and intact. IMAGING: EKG: The patient has sinus rhythm. Chest: The patient has bilateral pleural effusion noted on chest x-ray. ED COURSE: The patient received Lasix 40 IV, Tylenol 1 gram, metoprolol 25 mg, hydralazine 25, methylprednisone 125, DuoNebs. Chest x-ray showed bilateral pleural effusion. LABORATORY DATA: WBC 6.8, hemoglobin 8.0, hematocrit 23.6, RDW is 14.7, MCV is 78.2. Sodium 138, potassium is 4.4, chloride is 110, carbon dioxide of 17, anion gap of 15, BUN 95, creatinine is 5.49, GFR of 8, glucose is 142, alkaline phosphatase is 233. Creatinine kinase is 243, CK-MB 7.6, troponin is less than 0.010 x2. BNP is 245.4. Vitamin B12 is 447, folate is 8.0. ASSESSMENT AND PLAN: 1. This is a 67-year-old female with past medical history significant of congestive heart failure, presenting with congestive heart failure exacerbation. At this point, the patient's congestive heart failure exacerbation is most likely secondary to her renal failure. The patient's GFR is currently at 8. At this point, we will get Nephrology. We will also get Cardiology to evaluate the patient. The patient has been given IV Lasix 40 from the ED. At this point, leave treatment to Nephrology and Cardiology. We will continue patient's home medication of atorvastatin, metoprolol, hydralazine at this time. 2. Hypertension. The patient is currently uncontrolled on her medication. We will do hydralazine to control blood pressure. We will continue patient on home dose of hydralazine, metoprolol. 3. Acute on chronic congestive heart failure. Patient's creatinine is currently 5.49. Patient has baseline is around 2. We have consulted the patient's software program manager, Dr. Garrido, and the patient's GFR is currently 8, so we will, at this point, consider patient being worked up for possible hemodialysis. 4. Iron deficiency anemia. The patient is going to be started on Venofer and will benefit on outpatient iron supplements. 5. Diabetes mellitus. We will continue patient on insulin sliding scale. We will monitor the patient's blood sugars closely. 6. History of asthma. The patient is currently wheezing. The patient has been given Solu-Medrol IV in the ED. We will do Solu-Medrol 40 q.8 hours and we will reassess patient in the a.m. 7. Deep vein thrombosis and gastrointestinal prophylaxis. We will do heparin and Pepcid. MTDD
[2017-12-07] MEDS ORDERED: Sodium Ferric Gluconate 250 MG in Sodium Chloride 0.9% 250 ML 250 ML IVPB SCH (07:00)
[2017-12-07] MEDS ORDERED: Nitroglycerin 0.4 MG TAB (25 Tab Bottle) ONE (08:24)
[2017-12-07] MEDS: Metoprolol Tartrate 25 MG TAB PO SCH ×2 (08:34→20:14)
[2017-12-07] MEDS: Famotidine 20 MG TAB PO SCH (08:34)
[2017-12-07] MEDS ORDERED: hydrALAZINE 25 MG TAB PO SCH ×2 (09:00→13:01)
[2017-12-07] MEDS ORDERED: Heparin 5,000 UNITS/ML VIAL SC SCH (09:00)
[2017-12-07 10:24] LABS: Reticulocyte Count 2.4 % (0.5-1.5)
[2017-12-07] MEDS ORDERED: NIFEdipine XL 30 MG TAB PO SCH (10:30)
[2017-12-07 10:36] LABS: Iron 52 ug/dL (50-170); Iron Binding Capacity, Total 289 mcg/dL (265-497)
--- NOTE | 2017-12-07 13:30 | CON ---
DATE OF CONSULTATION: 12/07/2017 REASON FOR CONSULTATION: Diastolic heart failure. HISTORY OF PRESENT ILLNESS: Mrs. Monreal is a very pleasant 67-year-old white female who comes to the hospital for evaluation of chest pain. She states that last week she went out to have a dinner with her . She developed diarrhea the day after and started having chest tightness since then. This has been going on for the last week. She had an eye shot with Dr. Johnston and she did not want to miss this as it is really hard to get in, so she had this procedure done and she decided to come into the hospital a few days later as her chest tightness would not go away. On initial evaluation, she was found to have an elevated creatinine. BNP was not too high and she was admitted for renal failure and possible heart failure as well. She had a positive CK-MB, but troponin has remained negative x2. PAST MEDICAL HISTORY: 1. Diastolic heart failure. 2. Anemia, likely of chronic disease. 3. Normal PET scan back in 01/2017. Her EF was 51% with no reversible ischemia. 4. Hypertension. 5. Type 2 diabetes. 6. Hyperlipidemia. 7. Bronchial asthma. PAST SURGICAL HISTORY: 1. Left femur repair. 2. Lumpectomy about 30 years ago. ALLERGIES: No known drug allergies. OUTPATIENT MEDICATIONS: Include: 1. [place] p.r.n. 2. Ferrous sulfate 325 mg p.o. b.i.d. 3. Hydralazine 25 mg t.i.d. 4. Metoprolol tartrate 25 mg b.i.d. 5. Atorvastatin 40 mg at bedtime. 6. Metolazone 5 mg a day. 7. Furosemide 40 mg b.i.d. 8. Alendronate 70 mg every weekly. 9. Amlodipine 10 mg a day. FAMILY HISTORY: Noncontributory. SOCIAL HISTORY: No alcohol, tobacco or drugs. REVIEW OF SYSTEMS: A 12-point review of systems was done and is all negative unless stated in the history of present illness. PHYSICAL EXAMINATION: VITAL SIGNS: Temperature 97.5, pulse 75, respiration rate 17, sat 98% on room air, blood pressure in the 170s-180s/80s. GENERAL: Awake, alert, oriented x3, in no distress. HEENT: Normocephalic, atraumatic. NECK: Supple. LUNGS: Clear. CARDIOVASCULAR: S1, S2, no S3 or S4, no murmurs or rubs. ABDOMEN: Soft, positive bowel sounds. EXTREMITIES: 1+ edema bilaterally. SKIN: Warm and dry. LABORATORY WORK: Reviewed. CBC: White count of 7.4, hemoglobin 7.8, hematocrit 23, platelet count 277. Chemistries with a chloride of 110, carbon dioxide of 17, BUN of 95, creatinine 5.49, glucose of 147. Iron was normal. TIBC was normal. Ferritin was 29, which is normal. Alkaline phosphatase and CK were elevated. CK-MB was normal. Troponin negative x2. BNP was 245, albumin of 3.3. Folate was normal as was vitamin B12. Chest x-ray was reviewed, has small bilateral pleural effusions with cardiomegaly and borderline pulmonary vascular congestion. This is similar to last study back in July of this year. ASSESSMENT: 1. Acute diastolic heart failure. 2. Acute kidney injury on chronic kidney disease. 3. Chronic kidney disease, stage 5. 4. Hypertension. 5. Bronchial asthma. PLAN: 1. I would continue IV Lasix. She will be a candidate for dialysis in the near future. I think we will leave this up to Dr. Garrido, her primary industrial engineering intern. 2. Would increase her hydralazine to 50 t.i.d. to control her blood pressure a little bit better. I agree with switching the amlodipine to nifedipine, currently at 60. We may have to up titrate little way up to 90 eventually, but we will see her blood pressure fairs. 3. I do not think her renal failure is cardiac mediated and more than likely more hypertensive related. I would continue aggressive blood pressure control. She is on the fence about starting hemodialysis. She wants to talk with some of her family members that already on it before doing so. We will defer this decision to her and Dr. Garrido. Thank you for letting us participate in the care of your patient. We will follow. DENISSE
--- NOTE | 2017-12-07 14:03 | CON ---
DATE OF CONSULTATION: 12/07/2017 CONSULTING PHYSICIAN: Dr. Radhika Gross REQUESTING PHYSICIAN: Dr. Isael Jackson REASON FOR CONSULTATION: Advanced chronic kidney disease. IMPRESSION: 1. Advanced chronic kidney disease stage 5. This is likely progression of baseline chronic kidney d isease/diabetic nephropathy. 2. Anemia, likely anemia of chronic kidney disease. 3. Chest pain, query coronary artery disease in a patient with advanced renal failure and diabetic. 4. Metabolic acidosis related to problem #1. 5. Hypertension, suboptimally controlled. 6. Bilateral pleural effusion with pulmonary congestion. PLAN: 1. I do believe most likely this patient's renal function has declined to the point of requiring adiel al replacement therapy (hemodialysis). I did have a prolonged discussion with this patient as to the need to initiate this modality of treatment. She would like to make some calls to some of her famil y members who have experience with dialysis before getting back to me on day. 2. Erythropoiesis stimulating agent recommended. 3. Start bicarbonate supplementation. 4. Adjust patient's antihypertensive medications. 5. Discontinue heparin as the patient with subconjunctival bleed. 6. Renally dose all medications for extremely low GFR while avoiding potentially nephrotoxic agents. 7. Will evaluate this patient's bone mineral metabolism profile. 8. Further management to be dependent on the clinical course. Most likely, the patient is at a poin t that she is going to require hemodialysis/renal replacement therapy, especially patient is to under go cardiac catheterization to evaluate for this chest pain. HISTORY OF PRESENT ILLNESS: This is a 67-year-old female patient with chronic kidney disease in the context of diabetic nephropathy who presented here with estimated GFR of about 8 noted to be severely anemic, complained of chest pain. Clinical evaluation of this patient, reviewed the patient with ad vanced renal failure that is already becoming symptomatic. The patient is not anemic. As a result o f these findings, the decision has been taken to involve Renal in the management of this case. PAST MEDICAL ASSESSMENT: 1. Diabetes mellitus type 2, now diet controlled. 2. Dyslipidemia. 3. Hypertension. 4. Chronic kidney disease. 5. Asthma. 6. Congestive heart failure. ALLERGIES: No known drug allergies. SOCIAL HISTORY: No alcohol, no tobacco, no illicit drug use. with 7 children. FAMILY HISTORY: Notable for diabetes and some kidney failure in family members. REVIEW OF SYSTEMS: As documented in the body of the history. All the other systems were reviewed an d found not to be significantly related to the presenting illness. LABORATORY INVESTIGATION: Significant for hemoglobin of 7.8. Chemistry showed bicarbonate 14, BUN o f 98 with a creatinine of 5.19, phosphorus of 6.3. PHYSICAL EXAMINATION: GENERAL: The patient was found not to be in any obvious respiratory distress. VITAL SIGNS: Afebrile with temperature 97.5, pulse 75, blood pressure 180/83, respirations 17, O2 sa t 98%. HEENT: Unremarkable. Moist mucosa. Normal conjunctivae, no icterus. CARDIOVASCULAR SYSTEM: First and second heart sounds normal. DIGESTIVE SYSTEM: Revealed a benign abdomen with positive bowel sounds. EXTREMITIES: Showed mild peripheral edema. NEUROLOGIC: Alert, oriented. No lateralizing signs. LYMPHATICS: No peripheral lymphadenopathy. SUMMARY: A 67-year-old female patient with advanced chronic kidney disease stage 5 who presented her e with chest pain. Thank you for this consultation. We will follow with you.
--- NOTE | 2017-12-07 14:46 | ULT ---
VENOUS DUPLEX SONOGRAM BILATERAL UPPER EXTREMITY: Date: 12/07/17 HISTORY: Renal failure. Need for long-term hemodialysis access. FINDINGS: Each internal jugular and subclavian vein were evaluated, along with each axillary, brachial, cephali c, and basilic veins. Good color and spectral Doppler flow. Measurements are as follows: RIGHT UPPER EXTREMITY BRACHIAL ARTERY: 4 mm RADIAL ARTERY: 3 mm ULNAR ARTERY: 1 mm CEPHALIC VEIN Proximal Humerus: 2 mm Mid Humerus: 3 mm Distal Humerus: 2 mm Antecubital Fossa: 2 mm Proximal Forearm: 2 mm Mid Forearm: 1 mm Distal Forearm: 1 mm BASILIC VEIN Proximal Humerus: 4 mm Mid Humerus: 4 mm Distal Humerus: 2 mm Antecubital Fossa: 2 mm Proximal Forearm: 2 mm Mid Forearm: 1 mm Distal Forearm: 1 mm LEFT UPPER EXTREMITY BRACHIAL ARTERY: 3 mm RADIAL ARTERY: 2 mm ULNAR ARTERY: 2 mm CEPHALIC VEIN Proximal Humerus: 2 mm Mid Humerus: 2 mm Distal Humerus: 2 mm Antecubital Fossa: 2 mm Proximal Forearm: 2 mm Mid Forearm: 2 mm Distal Forearm: 1 mm BASILIC VEIN Proximal Humerus: 3 mm Mid Humerus: 2 mm Distal Humerus: 2 mm Antecubital Fossa: 2 mm Proximal Forearm: 1 mm Mid Forearm: 1 mm Distal Forearm: 1 mm IMPRESSION: Patent vascular structures throughout each upper extremity with measurements as detailed above. POS: [facility]
--- NOTE | 2017-12-07 15:19 | PDOC.EVN ---
Event Note - Event Note Event Note: pt up in bed no complains. will add bp meds for better control. cardio and nephrology to see pt.
[2017-12-07] MEDS: hydrALAZINE 25 MG TAB PO SCH ×2 (16:00→20:14)
[2017-12-07] MEDS: Epoetin (ESRD) 20,000 UNITS/ML SC SCH (18:06)
[2017-12-07] MEDS: Insulin Regular 300 UNITS/3 ML VIAL SC PRN ×2 (18:06→20:46)
[2017-12-07] MEDS: Atorvastatin Calcium 40 MG TAB PO SCH (20:14)
[2017-12-07] MEDS: Sodium Bicarbonate Tab 325 MG TAB PO SCH (20:16)
[2017-12-08 06:03] LABS: Anion Gap 17 mmol/L (10-20); BUN (Urea Nitrogen) 102 mg/dL (9.8-20.1); BUN/Creatinine Ratio 18.51; Calc. Creatinine Clearance 12 mL/min (70-130); Calcium 8.1 mg/dL (7.8-10.44); Carbon Dioxide 14 mmol/L (23-31); Chloride 108 mmol/L (98-107); Estimated GFR-MDRD 8; Glucose 119 mg/dL (80-115); Phosphorus 6.7 mg/dL (2.3-4.7); Potassium 4.1 mmol/L (3.5-5.1); Sodium 135 mmol/L (136-145)
[2017-12-08] MEDS ORDERED: NIFEdipine XL 60 MG TAB PO SCH (09:00)
[2017-12-08] MEDS ORDERED: NIFEdipine XL 30 MG TAB PO SCH ×2 (09:00)
[2017-12-08] MEDS: Polyethylene Glycol 3350 17 GM Packet PO SCH (11:11)
[2017-12-08] MEDS: Metoprolol Tartrate 25 MG TAB PO SCH ×2 (11:12→20:35)
[2017-12-08] MEDS: Sodium Bicarbonate Tab 325 MG TAB PO SCH ×2 (11:13→20:34)
[2017-12-08] MEDS: hydrALAZINE 25 MG TAB PO SCH ×3 (11:14→20:34)
[2017-12-08] MEDS: Famotidine 20 MG TAB PO SCH (11:15)
--- NOTE | 2017-12-08 13:50 | PDOC.PN ---
- Subjective Encounter Start Date: 12/08/17 Encounter Start Time: 12:25 -: old records requested/rev Pt seen and examined, chart reviewed in its entirety, this is my first visit iwth this patient admitted with SOB, volume overload, CKDV. Nephro discussing starting HD Pt states shes urinating wellwith mojgan catht show 9lb loss, but I/O not accurate. only show net -170ml since admit, though shes put out 1L since 0700 today. no F/C, no N/V/dc, no CP or SOB now. off O2. Seen by cards, Hydralazine increased, amlodipine changed to nifedipine. awaiting Nephro visit. - Objective Resuscitation Status: Resuscitation Status FULL:Full Resuscitation MAR Reviewed: Yes Vital Signs & Weight: Vital Signs (12 hours) Temp Pulse Resp BP Pulse Ox 12/08/17 11:16 90 12/08/17 11:14 90 12/08/17 10:30 97.9 F 90 18 97 12/08/17 08:00 97.9 F 90 18 168/71 H 97 12/08/17 06:42 97 12/08/17 06:39 80 12 12/08/17 05:19 98 F 89 14 150/73 H 97 Weight Admit Weight 174 lb 9.698 oz Weight 165 lb 5.547 oz I&O: 12/07/17 12/08/17 12/09/17 06:59 06:59 06:59 Intake Total 260 1220 Output Total 500 1150 Balance -240 70 Result Diagrams: 12/07/17 05:21 12/08/17 05:26 Additional Labs: Accuchecks 12/08/17 12/07/17 12/07/17 05:09 20:23 16:55 POC Glucose 131 H 284 H 268 H Phys Exam - Physical Examination Constitutional: NAD HEENT: PERRLA, moist MMs, sclera anicteric, oral pharynx no lesions Neck: no nodes, no JVD, supple, full ROM Respiratory: no wheezing, no rales, no rhonchi, clear to auscultation bilateral Cardiovascular: RRR, no significant murmur, no rub Gastrointestinal: soft, non-tender, no distention, positive bowel sounds Musculoskeletal: edema present Neurological: non-focal, normal sensation, moves all 4 limbs Lymphatic: no nodes Psychiatric: normal affect, A&O x 3 Skin: no rash, normal turgor, cap refill <2 seconds Dx/Plan (1) Acute on chronic renal failure Code(s): N17.9 - ACUTE KIDNEY FAILURE, UNSPECIFIED; N18.9 - CHRONIC KIDNEY DISEASE, UNSPECIFIED Status: Acute Qualifiers: Acute renal failure type: unspecified Chronic kidney disease stage: stage 5 , not on chronic dialysis Qualified Code(s): N17.9 - Acute kidney failure, unspecified; N18.5 - Chronic kidney disease, stage 5 Comment: Chronicity unclear (2) Anemia Code(s): D64.9 - ANEMIA, UNSPECIFIED Status: Chronic Qualifiers: Chronic kidney disease stage: stage 5, not on chronic dialysis Comment: stable (3) Asthma Code(s): J45.909 - UNSPECIFIED ASTHMA, UNCOMPLICATED Status: Chronic Qualifiers: Asthma severity: mild Asthma persistence: unspecified Asthma complication type: unspecified Qualified Code(s): J45.998 - Other asthma Comment: stable (4) DM2 (diabetes mellitus, type 2) Status: Chronic Qualifiers: Diabetes mellitus longterm insulin use: without emt intermediate use Diabetes mellitus complication status: with kidney complications Diabetes mellitus complication detail: with chronic kidney disease Chronic kidney disease stage : stage 5, not on chronic dialysis Qualified Code(s): E11.22 - Type 2 diabetes mellitus with diabetic chronic kidney disease; N18.5 - Chronic kidney disease, stage 5 Comment: continue accuchecks, insulin sliding scale. (5) HTN (hypertension) Code(s): I10 - ESSENTIAL (PRIMARY) HYPERTENSION Status: Chronic Qualifiers: Hypertension type: essential hypertension Qualified Code(s): I10 - Essential (primary) hypertension Comment: titrate antihypertensives as needed. - Plan cont current plan of care, PT/OT, out of bed/ambulate * .
[2017-12-08] MEDS ORDERED: Benzonatate 100 MG CAP PO PRN (13:54)
[2017-12-08] MEDS ORDERED: guaiFENesin/Dextromethorphan 10 ML UDCUP PO PRN (13:54)
--- NOTE | 2017-12-08 14:17 | PDOC.CTH ---
Cardiology Progress Note - Subjective She is doing better. No chest pain, tightness, pressure, SOB. - Objective Vital Signs Temp Pulse Resp BP Pulse Ox 12/08/17 14:08 77 12 12/08/17 11:16 90 12/08/17 11:14 90 12/08/17 10:30 97.9 F 90 18 97 12/08/17 08:00 97.9 F 90 18 168/71 H 97 12/08/17 06:42 97 12/08/17 06:39 80 12 12/08/17 05:19 98 F 89 14 150/73 H 97 Admit Weight 174 lb 9.698 oz Weight 165 lb 5.547 oz 12/07/17 12/08/17 12/09/17 06:59 06:59 06:59 Intake Total 260 1220 Output Total 500 1150 Balance -240 70 - Physical Examination General/Neuro: alert & oriented x3, NAD Neck: no JVD present Lungs: CTA, unlabored respirations Heart: RRR Abdomen: NT/ND Extremities: other: (no edema.) - Telemetry Telemetry Rhythm: NSR - Labs Result Diagrams: 12/07/17 05:21 12/08/17 05:26 Troponin/CKMB CK-MB (CK-2) 7.6 ng/mL (0-6.6) H* 12/06/17 23:00 Troponin I 0.010 ng/mL (< 0.028) 12/07/17 05:21 - Assessment/Plan 1. Acute on chronic kidney injury 2. Chronic diastolic dysfunction 3. Normal LV EF 4. HTN 5. CKD stage 5 PLAN: - Would stop lasix for now, seems euvolemic. - Creatinine not any better. - Will increase her hydralazine to 100 mg TID and her Procardia to 90 mg daily. - May discharge home any time from cardiac perspective. - Needs strict BP control as an outpatient. - Will see her back in the office in 1 month.
[2017-12-08] MEDS ORDERED: hydrALAZINE 25 MG TAB PO SCH (14:21)
[2017-12-08] MEDS ORDERED: NIFEdipine XL 90 MG TAB PO SCH (14:30)
[2017-12-08] MEDS: Atorvastatin Calcium 40 MG TAB PO SCH (20:34)
[2017-12-09] MEDS: HYDROcodone/Acetaminophen 5/325 mg Tablet PO PRN (03:10)
[2017-12-09 05:21] LABS: #Eosinphils 0.3 thou/uL (0.0-0.7); #Lymphocytes 1.5 thou/uL (1.20-3.40); #Monocytes 0.9 thou/uL (0.11-0.59); #Neutrophils 6.8 thou/uL (1.40-6.50); %Basophils 0.3 % (0.0-1.0); %Eosinophils 2.8 % (0.0-10.0); %Lymphocytes 15.8 % (21.0-51.0); %Monocytes 9.3 % (0.0-10.0); %Neutrophils 71.8 % (42.0-75.0); Hemoglobin 6.8 g/dL (12.0-16.0); Mean Corpuscular HGB CONC 33.7 g/dL (32.0-36.0); Mean Corpuscular Hemoglobin 26.7 pg (27.0-31.0); Mean Corpuscular Volume 79.2 fL (78.0-98.0); Mean Platelet Volume 7.7 fL (7.4-10.4); Platelet Count 255 thou/uL (130-400); RBC Distribution Width 15.2 % (11.5-14.5); Red Blood Cell (RBC) Count 2.55 mill/uL (4.20-5.40); White Blood Cell (WBC) Count 9.5 thou/uL (4.8-10.8)
[2017-12-09 05:37] LABS: Albumin 2.8 g/dL (3.4-4.8); Anion Gap 15 mmol/L (10-20); BUN (Urea Nitrogen) 114 mg/dL (9.8-20.1); BUN/Creatinine Ratio 18.36; Calc. Creatinine Clearance 11 mL/min (70-130); Calcium 7.6 mg/dL (7.8-10.44); Carbon Dioxide 17 mmol/L (23-31); Chloride 109 mmol/L (98-107); Estimated GFR-MDRD 7; Glucose 138 mg/dL (80-115); Magnesium 2.4 mg/dL (1.6-2.6); Phosphorus 7.1 mg/dL (2.3-4.7); Potassium 4.7 mmol/L (3.5-5.1); Sodium 136 mmol/L (136-145)
[2017-12-09] MEDS: hydrALAZINE 25 MG TAB PO SCH ×3 (07:48→20:41)
[2017-12-09] MEDS: Sodium Bicarbonate Tab 325 MG TAB PO SCH ×2 (07:48→20:42)
[2017-12-09] MEDS: NIFEdipine XL 90 MG TAB PO SCH (07:49)
[2017-12-09] MEDS: Famotidine 20 MG TAB PO SCH (07:50)
[2017-12-09] MEDS: Polyethylene Glycol 3350 17 GM Packet PO SCH (07:50)
[2017-12-09] MEDS: Metoprolol Tartrate 25 MG TAB PO SCH ×2 (07:50→20:42)
[2017-12-09] MEDS: Calcium Acetate 667 MG CAP PO SCH ×3 (10:47→17:09)
[2017-12-09] MEDS ORDERED: Furosemide 40 MG/4 ML VIAL SLOW IVP SCH (18:00)
--- NOTE | 2017-12-09 18:13 | PDOC.CTH ---
<Krystal Chang - Last Filed: 12/09/17 18:14> Cardiology Progress Note - Subjective The pt seen and examined. No overnight events. Complains of dizziness with standing since this admission possible 2/2 anemia. - Objective Vital Signs Temp Pulse Pulse Resp BP BP BP 12/09/17 15:27 98.0 F 84 18 143/67 H 12/09/17 15:21 98.0 F 84 18 143/67 H 12/09/17 14:49 98.9 F 86 18 136/61 12/09/17 14:45 89 131/61 12/09/17 12:00 98.2 F 89 18 131/59 L 12/09/17 11:51 98.2 F 89 18 131/59 L 12/09/17 11:32 97.5 F L 87 18 131/63 12/09/17 08:00 98.2 F 80 18 12/09/17 07:49 96 12/09/17 07:48 96 134/63 12/09/17 07:44 98.2 F 96 18 134/63 12/09/17 07:14 12/09/17 07:11 95 12 Pulse Ox 12/09/17 15:27 12/09/17 15:21 92 L 12/09/17 14:49 12/09/17 14:45 12/09/17 12:00 92 L 12/09/17 11:51 12/09/17 11:32 12/09/17 08:00 96 12/09/17 07:49 12/09/17 07:48 12/09/17 07:44 95 12/09/17 07:14 94 L 12/09/17 07:11 Admit Weight 174 lb 9.698 oz Weight 165 lb 5.547 oz 12/08/17 12/09/17 12/10/17 06:59 06:59 06:59 Intake Total 1698 082 8706 Output Total 1150 400 500 Balance 70 80 1350 - Physical Examination General/Neuro: alert & oriented x3 Neck: no JVD present Lungs: CTA Heart: RRR Abdomen: soft Extremities: other: (No edema) - Telemetry Telemetry Rhythm: SR - Labs Result Diagrams: 12/09/17 05:02 12/09/17 05:02 Troponin/CKMB CK-MB (CK-2) 7.6 ng/mL (0-6.6) H* 12/06/17 23:00 Troponin I 0.010 ng/mL (< 0.028) 12/07/17 05:21 - Assessment/Plan 1. Acute on Chronic diastolid HF - Lasix 40mg IV BID was resumed by software engineer developer ; on BBlocker, but not MARSHALL/ARB due to hx of CKD 2. Acute on CKD stage 5 - possible HD; managed by software engineer developer 3. HTN - stable 4. DM type 2 - managed by PCP 5. Anemia - Hgb on 12/09/17 was 6.8; s/p 2 PRBC tx today 6. Asthma - stable 7. Ex-smoker - she stopped recent. MAR reviewed * Echo result is pending. Review of Systems - Review of Systems Constitutional: reports: see HPI EENTM: reports: no symptoms reported Respiratory: reports: no symptoms reported Cardiac (ROS): reports: no symptoms reported ABD/GI: reports: no symptoms reported : reports: no symptoms reported Musculoskeletal: reports: no symptoms reported Skin: reports: no symptoms reported <Jm Holguin - Last Filed: 12/09/17 23:57> Cardiology Progress Note - Objective Vital Signs Temp Pulse Pulse Resp BP BP BP 12/09/17 20:41 94 12/09/17 18:34 12/09/17 18:33 12/09/17 15:36 98.1 F 88 18 137/61 12/09/17 15:27 98.0 F 84 18 143/67 H 12/09/17 15:21 98.0 F 84 18 143/67 H 12/09/17 14:49 98.9 F 86 18 136/61 12/09/17 14:45 89 131/61 12/09/17 12:00 98.2 F 89 18 131/59 L Pulse Ox 12/09/17 20:41 12/09/17 18:34 95 12/09/17 18:33 95 12/09/17 15:36 12/09/17 15:27 12/09/17 15:21 92 L 12/09/17 14:49 12/09/17 14:45 12/09/17 12:00 92 L Admit Weight 174 lb 9.698 oz Weight 165 lb 5.547 oz 09/10/1812/09/17 12/10/17 06:59 06:59 06:59 Intake Total 2302 725 9485 Output Total 1150 400 500 Balance 70 80 1350 - Labs Result Diagrams: 12/09/17 05:02 12/09/17 05:02 Troponin/CKMB CK-MB (CK-2) 7.6 ng/mL (0-6.6) H* 12/06/17 23:00 Troponin I 0.010 ng/mL (< 0.028) 12/07/17 05:21 - Assessment/Plan Pt. seen and evaluated by me.I agree with the A/P by the LEGAL DOCUMENT ASSISTANT. Mild edema, wheezing.
--- NOTE | 2017-12-09 19:20 | EKG ---
Test Reason : SOB Blood Pressure : / mmHG Vent. Rate : 078 BPM Atrial Rate : 078 BPM P-R Int : 174 ms QRS Dur : 074 ms QT Int : 384 ms P-R-T Axes : 046 026 082 degrees QTc Int : 437 ms Normal sinus rhythm Normal ECG Confirmed by MALLORY DICKEY DO ([id number]), society editor LEONARDA CORTEZ ([id number] on 12/09/2017 7:19:49 PM Referred By: Confirmed By:MALLORY DICKEY DO
[2017-12-09] MEDS: Atorvastatin Calcium 40 MG TAB PO SCH (20:41)
[2017-12-09] MEDS: Zolpidem Tartrate 5 MG TAB PO PRN (22:36)
--- NOTE | 2017-12-10 00:08 | PRG ---
DATE OF SERVICE: 12/09/2017 SUBJECTIVE: The patient was seen and examined, seems to feel a little bit short of breath especially status post blood transfusion, otherwise noted with the following vital signs. OBJECTIVE: VITAL SIGNS: Afebrile with temperature 98.1, pulse of 88, respiratory rate of 18, blood pressure 137 /61. HEENT: Unremarkable with moist oral mucosa. No conjunctival injection or icterus. NECK: Supple. CARDIOVASCULAR SYSTEM: First and second heart sounds were heard. RESPIRATORY SYSTEM: Clear to auscultation. DIGESTIVE SYSTEM: Revealed a benign abdomen with positive bowel sounds. EXTREMITIES: No peripheral edema. SKIN: No new gross rash. LYMPHATICS: No peripheral lymphadenopathy. LABORATORY INVESTIGATION: Showed a hemoglobin of 6.8. Creatinine gone up to 6.21, BUN of 114, bicar bonate of 17. IMPRESSION: 1. Worsening renal failure in the context of problem #2. 2. Diabetic nephropathy. 3. Metabolic acidosis related to problem #1. 4. Hypertension. PLAN: The patient will need to be transfused . Further management to be dependent on the clinical cou rse.
[2017-12-10] MEDS ORDERED: Furosemide 40 MG/4 ML VIAL SLOW IVP PRN (02:00)
[2017-12-10 06:01] LABS: Albumin 3.1 g/dL (3.4-4.8); Anion Gap 17 mmol/L (10-20); BUN (Urea Nitrogen) 114 mg/dL (9.8-20.1); BUN/Creatinine Ratio 17.17; Calc. Creatinine Clearance 10 mL/min (70-130); Calcium 8.6 mg/dL (7.8-10.44); Carbon Dioxide 16 mmol/L (23-31); Chloride 109 mmol/L (98-107); Estimated GFR-MDRD 6; Glucose 133 mg/dL (80-115); Phosphorus 7.3 mg/dL (2.3-4.7); Potassium 4.8 mmol/L (3.5-5.1); Sodium 137 mmol/L (136-145)
[2017-12-10] MEDS: Polyethylene Glycol 3350 17 GM Packet PO SCH (08:01)
[2017-12-10] MEDS: Famotidine 20 MG TAB PO SCH (08:01)
[2017-12-10] MEDS: Sodium Bicarbonate Tab 325 MG TAB PO SCH ×2 (08:01→20:11)
[2017-12-10] MEDS: Calcium Acetate 667 MG CAP PO SCH ×3 (08:02→17:17)
[2017-12-10] MEDS: hydrALAZINE 25 MG TAB PO SCH ×3 (08:09→20:10)
[2017-12-10] MEDS: Metoprolol Tartrate 25 MG TAB PO SCH ×2 (08:09→20:11)
[2017-12-10] MEDS: NIFEdipine XL 90 MG TAB PO SCH (08:10)
[2017-12-10 09:39] LABS: Hemoglobin 10.4 g/dL (12.0-16.0)
--- NOTE | 2017-12-10 13:21 | PDOC.CTH ---
<Krystal Chang - Last Filed: 12/10/17 13:18> Cardiology Progress Note - Subjective The pt seen and examined. No overnight events. No cardiac complaints. She cont. having SOB and feeling of weakness. Hgb today was 10.4 after receiving 2 units of PRBC on 12/09/17. Also complains of cont. cough today and Nurse will give some PRN cough med to the pt. - Objective Vital Signs Temp Pulse Resp BP BP Pulse Ox 12/10/17 08:10 103 H 175/74 H 12/10/17 08:09 103 H 175/74 H 12/10/17 08:00 98.8 F 103 H 16 175/74 H 93 L 12/10/17 07:23 94 L 12/10/17 07:21 97 12 12/10/17 04:00 98.2 F 98 24 H 174/73 H 92 L Admit Weight 174 lb 9.698 oz Weight 167 lb 11.2 oz 12/09/17 12/10/17 12/11/17 06:59 06:59 06:59 Intake Total 480 2300 Output Total 400 1200 Balance 80 1100 - Physical Examination General/Neuro: alert & oriented x3 Neck: no JVD present Lungs: CTA (very diminished at bases) Heart: RRR Abdomen: soft Extremities: other: (BLE edema) - Telemetry Telemetry Rhythm: SR 90s - Labs Result Diagrams: 12/10/17 05:33 12/10/17 05:33 Troponin/CKMB CK-MB (CK-2) 7.6 ng/mL (0-6.6) H* 12/06/17 23:00 Troponin I 0.010 ng/mL (< 0.028) 12/07/17 05:21 - Assessment/Plan 1. Acute on Chronic diastolid HF - Lasix 40mg IV was increased from BID to TID by bingo clerk from today; on BBlocker, but not MARSHALL/ARB due to hx of CKD 2. Acute on CKD stage 5 - managed by bingo clerk 3. HTN - Lasix was increased from today. Cont. to monitor 4. DM type 2 - managed by PCP 5. Anemia - Hgb on 12/09/17 was 6.8; s/p 2 PRBC tx today 6. Asthma - complain of SOB today. 7. Ex-smoker - she stopped recent. MAR reviewed * Echo result is pending. Review of Systems - Review of Systems Constitutional: reports: weakness EENTM: reports: no symptoms reported Respiratory: reports: see HPI Cardiac (ROS): reports: no symptoms reported ABD/GI: reports: no symptoms reported : reports: no symptoms reported Musculoskeletal: reports: no symptoms reported Skin: reports: no symptoms reported <Jm Holguin - Last Filed: 12/11/17 10:22> Cardiology Progress Note - Objective Vital Signs Temp Pulse Resp BP BP BP BP 12/11/17 10:06 98 155/67 H 12/11/17 10:05 98 155/67 H 12/11/17 08:00 97.9 F 98 18 155/67 H 12/11/17 06:48 100 16 12/11/17 04:00 98.4 F 97 18 156/69 H 12/10/17 23:50 153/67 H 12/10/17 23:47 Pulse Ox 12/11/17 10:06 12/11/17 10:05 12/11/17 08:00 99 12/11/17 06:48 12/11/17 04:00 93 L 12/10/17 23:50 12/10/17 23:47 94 L Admit Weight 174 lb 9.698 oz Weight 165 lb 4.8 oz 12/10/17 12/11/17 12/12/17 06:59 06:59 06:59 Intake Total 2300 520 Output Total 1200 800 Balance 1100 -280 - Labs Result Diagrams: 12/11/17 05:34 12/11/17 05:34 Troponin/CKMB CK-MB (CK-2) 7.6 ng/mL (0-6.6) H* 12/06/17 23:00 Troponin I 0.010 ng/mL (< 0.028) 12/07/17 05:21 - Assessment/Plan Pt. seen and eval. by me. I agree with the A/P by the CLERICAL WAREHOUSEMAN. Renal issues per nephrology.Wheezing.
--- NOTE | 2017-12-10 13:40 | PDOC.PN ---
- Subjective Encounter Start Date: 12/09/17 Encounter Start Time: 12:10 brething stable, no changes, no new compalints. labs reivewed, renal and cardiology notes reviewed. No CP, no SOB, no N/V/d/c, no f/C Pt has not decided on HD yet All systems reviewed and neg x as above - Objective Resuscitation Status: Resuscitation Status FULL:Full Resuscitation MAR Reviewed: Yes Vital Signs & Weight: Vital Signs (12 hours) Temp Pulse Resp BP BP Pulse Ox 12/10/17 08:10 103 H 175/74 H 12/10/17 08:09 103 H 175/74 H 12/10/17 08:00 98.8 F 103 H 16 175/74 H 93 L 12/10/17 07:23 94 L 12/10/17 07:21 97 12 12/10/17 04:00 98.2 F 98 24 H 174/73 H 92 L Weight Admit Weight 174 lb 9.698 oz Weight 167 lb 11.2 oz I&O: 12/09/17 12/10/17 12/11/17 06:59 06:59 06:59 Intake Total 480 2300 Output Total 400 1200 Balance 80 1100 Result Diagrams: 12/10/17 05:33 12/10/17 05:33 Additional Labs: Accuchecks 12/10/17 12/10/17 12/09/17 10:50 05:37 20:31 POC Glucose 152 H 126 H 153 H 12/09/17 16:57 POC Glucose 136 H Phys Exam - Physical Examination Constitutional: NAD HEENT: PERRLA, moist MMs, sclera anicteric, oral pharynx no lesions Neck: no nodes, no JVD, supple, full ROM Respiratory: no wheezing, no rales, no rhonchi, clear to auscultation bilateral Cardiovascular: RRR, no significant murmur, no rub Gastrointestinal: soft, non-tender, no distention, positive bowel sounds Musculoskeletal: edema present Neurological: non-focal, normal sensation, moves all 4 limbs Lymphatic: no nodes Psychiatric: normal affect, A&O x 3 Skin: no rash, normal turgor, cap refill <2 seconds Dx/Plan (1) Acute on chronic renal failure Code(s): N17.9 - ACUTE KIDNEY FAILURE, UNSPECIFIED; N18.9 - CHRONIC KIDNEY DISEASE, UNSPECIFIED Status: Acute Qualifiers: Acute renal failure type: unspecified Chronic kidney disease stage: stage 5 , not on chronic dialysis Qualified Code(s): N17.9 - Acute kidney failure, unspecified; N18.5 - Chronic kidney disease, stage 5 Comment: Chronicity unclear (2) Anemia Code(s): D64.9 - ANEMIA, UNSPECIFIED Status: Chronic Qualifiers: Chronic kidney disease stage: stage 5, not on chronic dialysis Comment: stable (3) Asthma Code(s): J45.909 - UNSPECIFIED ASTHMA, UNCOMPLICATED Status: Chronic Qualifiers: Asthma severity: mild Asthma persistence: unspecified Asthma complication type: unspecified Qualified Code(s): J45.998 - Other asthma Comment: stable (4) DM2 (diabetes mellitus, type 2) Status: Chronic Qualifiers: Diabetes mellitus tank terminal gauger insulin use: without nursing home use Diabetes mellitus complication status: with kidney complications Diabetes mellitus complication detail: with chronic kidney disease Chronic kidney disease stage : stage 5, not on chronic dialysis Qualified Code(s): E11.22 - Type 2 diabetes mellitus with diabetic chronic kidney disease; N18.5 - Chronic kidney disease, stage 5 Comment: continue accuchecks, insulin sliding scale. (5) HTN (hypertension) Code(s): I10 - ESSENTIAL (PRIMARY) HYPERTENSION Status: Chronic Qualifiers: Hypertension type: essential hypertension Qualified Code(s): I10 - Essential (primary) hypertension Comment: titrate antihypertensives as needed. - Plan * .
--- NOTE | 2017-12-10 13:48 | PDOC.PN ---
- Subjective Encounter Start Date: 12/10/17 Encounter Start Time: 10:30 pt about the same, Dr Johns to see today for HD access, pt has decided. cr continues to climb, some UOP, ambulating No CP, no SOb, no n/V/D/c, no fever or schills all systems reviewed and neg x as above - Objective Resuscitation Status: Resuscitation Status FULL:Full Resuscitation MAR Reviewed: Yes Vital Signs & Weight: Vital Signs (12 hours) Temp Pulse Resp BP BP Pulse Ox 12/10/17 13:40 100 12 12/10/17 08:10 103 H 175/74 H 12/10/17 08:09 103 H 175/74 H 12/10/17 08:00 98.8 F 103 H 16 175/74 H 93 L 12/10/17 07:23 94 L 12/10/17 07:21 97 12 12/10/17 04:00 98.2 F 98 24 H 174/73 H 92 L Weight Admit Weight 174 lb 9.698 oz Weight 167 lb 11.2 oz I&O: 12/09/17 12/10/17 12/11/17 06:59 06:59 06:59 Intake Total 480 2300 Output Total 400 1200 Balance 80 1100 Result Diagrams: 12/10/17 05:33 12/10/17 05:33 Additional Labs: Accuchecks 12/10/17 12/10/17 12/09/17 10:50 05:37 20:31 POC Glucose 152 H 126 H 153 H 12/09/17 16:57 POC Glucose 136 H Phys Exam - Physical Examination Constitutional: NAD HEENT: PERRLA, moist MMs, sclera anicteric, oral pharynx no lesions left lateral scleral bleed stable Neck: no nodes, no JVD, supple, full ROM Respiratory: no wheezing, no rhonchi bibasilar rales present Cardiovascular: RRR, no significant murmur, no rub Gastrointestinal: soft, non-tender, no distention, positive bowel sounds Musculoskeletal: edema present Neurological: non-focal, normal sensation, moves all 4 limbs Lymphatic: no nodes Psychiatric: normal affect, A&O x 3 Skin: no rash, normal turgor, cap refill <2 seconds Dx/Plan (1) Acute on chronic renal failure Code(s): N17.9 - ACUTE KIDNEY FAILURE, UNSPECIFIED; N18.9 - CHRONIC KIDNEY DISEASE, UNSPECIFIED Status: Acute Qualifiers: Acute renal failure type: unspecified Chronic kidney disease stage: stage 5 , not on chronic dialysis Qualified Code(s): N17.9 - Acute kidney failure, unspecified; N18.5 - Chronic kidney disease, stage 5 Comment: Chronicity unclear (2) Anemia Code(s): D64.9 - ANEMIA, UNSPECIFIED Status: Chronic Qualifiers: Chronic kidney disease stage: stage 5, not on chronic dialysis Comment: stable (3) Asthma Code(s): J45.909 - UNSPECIFIED ASTHMA, UNCOMPLICATED Status: Chronic Qualifiers: Asthma severity: mild Asthma persistence: unspecified Asthma complication type: unspecified Qualified Code(s): J45.998 - Other asthma Comment: stable (4) DM2 (diabetes mellitus, type 2) Status: Chronic Qualifiers: Diabetes mellitus retirement insulin use: without termite helper use Diabetes mellitus complication status: with kidney complications Diabetes mellitus complication detail: with chronic kidney disease Chronic kidney disease stage : stage 5, not on chronic dialysis Qualified Code(s): E11.22 - Type 2 diabetes mellitus with diabetic chronic kidney disease; N18.5 - Chronic kidney disease, stage 5 Comment: continue accuchecks, insulin sliding scale. (5) HTN (hypertension) Code(s): I10 - ESSENTIAL (PRIMARY) HYPERTENSION Status: Chronic Qualifiers: Hypertension type: essential hypertension Qualified Code(s): I10 - Essential (primary) hypertension Comment: titrate antihypertensives as needed. - Plan cont current plan of care, PT/OT, out of bed/ambulate * . PC adn fistual to be done, starting HD per Dr Gross
--- NOTE | 2017-12-10 19:08 | PRG ---
DATE OF SERVICE: 12/10/2017 SUBJECTIVE: The patient seen and examined with no new complaint, noted with the following vital sign s. PHYSICAL EXAMINATION: VITAL SIGNS: Afebrile with temperature 98.3, pulse 99, respiratory rate 16, O2 sat 94% with a blood pressure 182/80. HEENT: Unremarkable with moist oral mucosa. NECK: Supple, No conjunctival injection or icterus. CARDIOVASCULAR: First and second heart sounds were heard. RESPIRATORY: Clear to auscultation. DIGESTIVE: Revealed a benign abdomen with positive bowel sounds. EXTREMITIES: No peripheral edema. SKIN: No new gross rash. LYMPHATICS: No peripheral lymphadenopathy. LABORATORY INVESTIGATIONS: Showed hemoglobin of 10.4. Creatinine of 6.64 with BUN 114 and bicarbona te was 16, phosphorus of 7.3. IMPRESSION: 1. Advanced chronic kidney disease stage 5 with profound azotemia. 2. Metabolic acidosis. 3. Hyperphosphatemia with secondary hyperparathyroidism, all related to problem #1. 4. Hypertension, suboptimally controlled. 5. Anemia of chronic kidney disease. PLAN: 1. The patient to have dialysis access placed tomorrow in preparation for hemodialysis initiation, w hich hopefully is going to be started tomorrow. 2. Erythropoiesis stimulating agents. 3. vitamin manager consult for outpatient dialysis placement. 4. Further management to be dependent on the clinical course.
[2017-12-10] MEDS: Atorvastatin Calcium 40 MG TAB PO SCH (20:11)
[2017-12-10] MEDS: Zolpidem Tartrate 5 MG TAB PO PRN (21:54)
[2017-12-11 05:53] LABS: #Eosinphils 0.1 thou/uL (0.0-0.7); #Lymphocytes 1.2 thou/uL (1.20-3.40); #Monocytes 0.8 thou/uL (0.11-0.59); #Neutrophils 5.2 thou/uL (1.40-6.50); %Basophils 0.4 % (0.0-1.0); %Eosinophils 1.7 % (0.0-10.0); %Lymphocytes 16.5 % (21.0-51.0); %Monocytes 10.3 % (0.0-10.0); %Neutrophils 71.1 % (42.0-75.0); Hemoglobin 9.8 g/dL (12.0-16.0); Mean Corpuscular HGB CONC 33.2 g/dL (32.0-36.0); Mean Corpuscular Hemoglobin 27.3 pg (27.0-31.0); Mean Corpuscular Volume 82.2 fL (78.0-98.0); Mean Platelet Volume 7.8 fL (7.4-10.4); Platelet Count 244 thou/uL (130-400); RBC Distribution Width 15.8 % (11.5-14.5); Red Blood Cell (RBC) Count 3.61 mill/uL (4.20-5.40); White Blood Cell (WBC) Count 7.3 thou/uL (4.8-10.8)
[2017-12-11 06:15] LABS: Anion Gap 18 mmol/L (10-20); BUN (Urea Nitrogen) 111 mg/dL (9.8-20.1); Calc. Creatinine Clearance 10 mL/min (70-130); Calcium 9.2 mg/dL (7.8-10.44); Carbon Dioxide 16 mmol/L (23-31); Chloride 110 mmol/L (98-107); Estimated GFR-MDRD 6; Glucose 142 mg/dL (80-115); Phosphorus 6.7 mg/dL (2.3-4.7); Potassium 4.5 mmol/L (3.5-5.1); Sodium 139 mmol/L (136-145)
[2017-12-11 06:34] LABS: HBSAB Concentration 0.83 mIU/mL; HBSAg Index 0.14 S/CO (0-0.99); Hep B Core Total Ab Non-Reactive (NonReactive); Hep B Core Total Index 0.04 S/CO (0-0.79); Hep B Surf AB Non-Reactive (NonReactive); Hep B Surf Ag Non-Reactive S/CO (NonReactive); Hep C IgG Ab Non-Reactive (NonReactive); Hep C Index 0.16 S/CO (0-0.79)
--- NOTE | 2017-12-11 07:28 | PDOC.GSCN ---
Surgery Consult: HPI - Consult details Date: 12/11/17 Time: 07:25 History of present illness: 12/11/17 07:25 Chief complaint: Need for dialysis access History of present illness: Patient is a 67-year-old woman with a one-week history of worsening shortness of breath. She states that it felt like a brick was on her chest and she couldn't catch her breath. She does have a history of asthma but hadn't had any problems with it in months prior to this episode. She was admitted to the hospital and found to have worsening renal failure and is felt to be in fluid overload. Her [place] [facility] has decided to institute dialysis and she requires access for this. She is right-handed. She states that her shortness of breath is better since coming into the hospital, and that she is able to breathe laying flat. Past medical history: History of heart failure but ejection fraction is 60-65% on echocardiogram during this admission. Diabetes and hypertension causing chronic renal failure, now progressing to end-stage renal failure. Asthma since childhood. Hyperlipidemia. Anemia felt to be due to chronic renal disease. Past surgical history: Lumpectomy for benign breast mass many years ago and ORIF of femur fracture. No known drug allergies Medications: Reviewed and as per the electronic medical record. She is not on any blood thinners. She takes metoprolol. No scheduled antibiotics. Review of systems: 10 system review systems is negative except per history of present illness. Family history: Sister with diabetes and father with lung cancer. Social history: Patient does not smoke drink or use illicit drugs Physical examination: Vital signs are stable although she has been somewhat tachycardic and is on oxygen. Gen. reveals a healthy appearing woman in no acute distress. She is not flushed or toxic in appearance. She is not jaundiced or icteric. She appears to be breathing easily at rest. Heart is slightly tachycardic but regular and without murmurs rubs or gallops. Lungs are diminished in the bases with occasional expiratory wheezes. No crackles. Abdomen is soft nondistended and nontender. No palpable masses or hernias. Extremities are warm and well perfused without significant edema. She does have palpable forearm cephalic and antecubital veins bilaterally. Neurologic: no focal deficit. Psychiatric: alert and oriented and appropriate. Labs and imaging are reviewed. Her GFR is less than 10. Her hematocrit is stable status post transfusion. Assessment/plan: End-stage renal failure with need for dialysis. Dr. Fang has recommended a tunneled hemodialysis catheter For immediate access and a fistula for long-term access. I discussed both of these procedures with the patient in detail. The inherent risks of each operation were discussed with the patient. These include but are not limited to leaving, infection, risks anesthesia, hemothorax, pneumothorax, blood clot in the vein, failure of the fistula to develop, need further procedures to obtain or maintain patency of the fistula, and arterial steal resulting in hand ischemia. She understands and accepts these risks and wishes to proceed. She is on the schedule for later today. All of her questions were answered. Surgery Consult: Exam - Vital signs Vital signs: Vital Signs - Most Recent Temp Pulse Resp BP Pulse Ox 98.4 F 100 16 156/69 H 93 L 12/11/17 04:00 12/11/17 06:48 12/11/17 06:48 12/11/17 04:00 12/11/17 04:00 Surgery Consult: Meds - Medications Medications: Current Medications Acetaminophen (Tylenol) 650 mg PO Q4H PRN PRN Reason: Headache/Fever or Pain Hydrocodone Bitart/Acetaminophen ([place] 5/325) 1 tab PO Q4H PRN PRN Reason: Moderate Pain (4-6) Last Admin: 12/09/17 03:10 Dose: 1 tab Albuterol/Ipratropium (Duoneb) 3 ml NEB [id number] TEO Last Admin: 12/11/17 06:48 Dose: 3 ml Atorvastatin Calcium (Lipitor) 40 mg PO HS TEO Last Admin: 12/10/17 20:11 Dose: 40 mg Benzonatate (Tessalon) 100 mg PO Q4H PRN PRN Reason: Cough Last Admin: 12/08/17 16:55 Dose: 100 mg Bisacodyl (Dulcolax) 10 mg PO DAILYPRN PRN PRN Reason: Constipation Last Admin: 12/09/17 20:42 Dose: 10 mg Calcium Acetate (Phoslo) 1,334 mg PO TID-WM [facility] Last Admin: 12/10/17 17:17 Dose: 1,334 mg Dextrose/Water (Dextrose 50%) 25 gm SLOW IVP PRN PRN PRN Reason: Hypoglycemia Epoetin Chris (Procrit) 7,500 units SC Q7D [facility] Last Admin: 12/07/17 18:06 Dose: 7,500 units Famotidine (Pepcid) 20 mg PO DAILY [facility] Last Admin: 12/10/17 08:01 Dose: 20 mg Furosemide (Lasix) 40 mg SLOW IVP Q8H PRN PRN Reason: shortness of breath Glucagon (Glucagon) 1 mg IM PRN PRN PRN Reason: Hypoglycemia Guaifenesin/Dextromethorphan (Robitussin Dm) 10 ml PO Q6H PRN PRN Reason: Cough Hydralazine HCl (Apresoline) 10 mg SLOW IVP Q6H PRN PRN Reason: SBP > 180 Last Admin: 12/07/17 05:34 Dose: 10 mg Hydralazine HCl (Apresoline) 100 mg PO TID [facility] Last Admin: 12/10/17 20:10 Dose: 100 mg Dextrose/Water (D5w) 1,000 mls @ 0 mls/hr IV .Q0M PRN PRN Reason: Hypoglycemia Insulin Human Lispro (Humalog) 0 units SC .MILD SLIDING SCALE PRN PRN Reason: Mild Correctional Scale Last Admin: 12/10/17 11:43 Dose: 2 unit Insulin Human Regular (Humulin R) 0 units SC .MILD SLIDING SCALE PRN PRN Reason: Mild Correctional Scale Last Admin: 12/07/17 20:46 Dose: 4 unit Metoprolol Tartrate (Lopressor) 25 mg PO BID [facility] Last Admin: 12/10/17 20:11 Dose: 25 mg Nifedipine (Procardia Xl) 90 mg PO DAILY [facility] Last Admin: 12/10/17 08:10 Dose: 90 mg Read Ppd Test Site 0 each PO ONE [facility] Stop: 12/14/17 16:01 Polyethylene Glycol (Miralax) 17 gm PO DAILY [facility] Last Admin: 12/10/17 08:01 Dose: 17 gm Senna (Senokot) 2 tab PO HSPRN PRN PRN Reason: Constipation Sodium Bicarbonate (Bicarbonate, Sodium) 650 mg PO BID [facility] Last Admin: 12/10/17 20:11 Dose: 650 mg Sodium Chloride (Flush - Normal Saline) 10 ml IVF Q12HR [facility] Last Admin: 12/10/17 20:11 Dose: 10 ml Sodium Chloride (Flush - Normal Saline) 10 ml IVF PRN PRN PRN Reason: Saline Flush Tuberculin PPD (Aplisol) 0.1 ml I-DERMAL 1600 TEO Stop: 12/11/17 16:01 Zolpidem Tartrate (Ambien) 5 mg PO HSPRN PRN PRN Reason: Insomnia Last Admin: 12/10/17 21:54 Dose: 5 mg - Allergies Allergies/Adverse Reactions: Allergies Allergy/AdvReac Type Severity Reaction Status Date / Time No Known Allergies Allergy Verified 07/25/17 23:20 Surgery Consult: Results - Labs Result Diagrams: 12/11/17 05:34 12/11/17 05:34 Lab results: Laboratory Results WBC 7.3 thou/uL (4.8-10.8) 12/11/17 05:34 RBC 3.61 mill/uL (4.20-5.40) L 12/11/17 05:34 Hgb 9.8 g/dL (12.0-16.0) L 12/11/17 05:34 Hct 29.7 % (36.0-47.0) L 12/11/17 05:34 MCV 82.2 fL (78.0-98.0) 12/11/17 05:34 MCH 27.3 pg (27.0-31.0) 12/11/17 05:34 MCHC 33.2 g/dL (32.0-36.0) 12/11/17 05:34 RDW 15.8 % (11.5-14.5) H 12/11/17 05:34 Plt Count 244 thou/uL (130-400) 12/11/17 05:34 MPV 7.8 fL (7.4-10.4) 12/11/17 05:34 Neutrophils % 71.1 % (42.0-75.0) 12/11/17 05:34 Lymphocytes % 16.5 % (21.0-51.0) L 12/11/17 05:34 Monocytes % 10.3 % (0.0-10.0) H 12/11/17 05:34 Eosinophils % 1.7 % (0.0-10.0) 12/11/17 05:34 Basophils % 0.4 % (0.0-1.0) 12/11/17 05:34 Neutrophils # 5.2 thou/uL (1.40-6.50) 12/11/17 05:34 Lymphocytes # 1.2 thou/uL (1.20-3.40) 12/11/17 05:34 Monocytes # 0.8 thou/uL (0.11-0.59) H 12/11/17 05:34 Eosinophils # 0.1 thou/uL (0.0-0.7) 12/11/17 05:34 Basophils # 0.0 thou/uL (0.0-0.2) 12/11/17 05:34 Retic Count 2.4 % (0.5-1.5) H 12/07/17 05:21 Immature Retic Fraction 0.248 Ratio (0.163-0.362) 12/07/17 05:21 Sodium 139 mmol/L (136-145) 12/11/17 05:34 Potassium 4.5 mmol/L (3.5-5.1) 12/11/17 05:34 Chloride 110 mmol/L (98-107) H 12/11/17 05:34 Carbon Dioxide 16 mmol/L (23-31) L 12/11/17 05:34 Anion Gap 18 mmol/L (10-20) 12/11/17 05:34 BUN 111 mg/dL (9.8-20.1) H 12/11/17 05:34 Creatinine 6.77 mg/dL (0.6-1.1) H 12/11/17 05:34 Estimated GFR (MDRD) 6 12/11/17 05:34 BUN/Creatinine Ratio 16.40 12/11/17 05:34 Glucose 142 mg/dL (80-115) H 12/11/17 05:34 POC Glucose 138 mg/dL (70-110) H 12/11/17 05:41 Calcium 9.2 mg/dL (7.8-10.44) 12/11/17 05:34 Phosphorus 6.7 mg/dL (2.3-4.7) H 12/11/17 05:34 Magnesium 2.4 mg/dL (1.6-2.6) 12/09/17 05:02 Iron 52 ug/dL (50-170) 12/07/17 05:21 TIBC 289 mcg/dL (265-497) 12/07/17 05:21 % Saturation 17 % (15-50) 12/07/17 02:36 Ferritin 29.87 ng/mL (10-291) 12/07/17 02:36 Total Bilirubin 0.2 mg/dL (0.2-1.2) 12/06/17 23:00 AST 34 U/L (5-34) 12/06/17 23:00 ALT 25 U/L (8-55) 12/06/17 23:00 Alkaline Phosphatase 233 U/L (40-150) H 12/06/17 23:00 Creatine Kinase 243 U/L (29-168) H 12/06/17 23:00 CK-MB (CK-2) 7.6 ng/mL (0-6.6) H* 12/06/17 23:00 Troponin I 0.010 ng/mL (< 0.028) 12/07/17 05:21 B-Natriuretic Peptide 245.4 pg/mL (0-100) H 12/06/17 23:00 Serum Total Protein 6.5 g/dL (6.0-8.3) 12/06/17 23:00 Albumin 3.0 g/dL (3.4-4.8) L 12/11/17 05:34 Globulin 3.2 g/dL (2.4-3.5) 12/06/17 23:00 Albumin/Globulin Ratio 1.0 g/dL (1.2-2.2) L 12/06/17 23:00 Vitamin B12 447 pg/mL (211-911) 12/07/17 02:36 Folate 8.00 ng/mL (7.0-31.4) 12/07/17 02:36 PTH Intact 206.6 pg/mL (19.8-88.0) H 12/07/17 12:29 Hep Bs Antigen Non-Reactive S/CO (NonReactive) 12/11/17 05:34 Hep Bs Antibody Non-Reactive (NonReactive) 12/11/17 05:34 Hep Bs Antibody Index 0.83 mIU/mL 12/11/17 05:34 Hep B Core Total Ab Non-Reactive (NonReactive) 12/11/17 05:34 Hepatitis C Antibody Non-Reactive (NonReactive) 12/11/17 05:34 Blood Type A POSITIVE 12/09/17 08:36 Antibody Screen NEGATIVE 12/09/17 08:36 Crossmatch See Detail 12/09/17 08:36
[2017-12-11] MEDS ORDERED: CEFAZOLIN/Water 2 GM/20 ML SYRINGE SLOW IVP SCH (08:15)
[2017-12-11] MEDS: Calcium Acetate 667 MG CAP PO SCH ×3 (08:54→17:20)
[2017-12-11] MEDS: Famotidine 20 MG TAB PO SCH ×2 (08:54→10:04)
[2017-12-11] MEDS: hydrALAZINE 25 MG TAB PO SCH ×4 (08:54→21:14)
[2017-12-11] MEDS: Metoprolol Tartrate 25 MG TAB PO SCH ×3 (08:55→21:16)
[2017-12-11] MEDS: Polyethylene Glycol 3350 17 GM Packet PO SCH (08:55)
[2017-12-11] MEDS: NIFEdipine XL 90 MG TAB PO SCH ×2 (08:55→10:06)
[2017-12-11] MEDS: Sodium Bicarbonate Tab 325 MG TAB PO SCH ×3 (08:56→21:16)
--- NOTE | 2017-12-11 12:41 | PDOC.CTH ---
Cardiology Progress Note - Subjective No new issues, Creatinine continues to rise. - Objective Vital Signs Temp Pulse Resp BP BP BP Pulse Ox 12/11/17 11:40 98.3 F 86 16 150/65 H 94 L 12/11/17 10:06 98 155/67 H 12/11/17 10:05 98 155/67 H 12/11/17 08:00 97.9 F 98 18 155/67 H 99 12/11/17 06:48 100 16 12/11/17 04:00 98.4 F 97 18 156/69 H 93 L Admit Weight 174 lb 9.698 oz Weight 165 lb 4.8 oz 12/10/17 12/11/17 12/12/17 06:59 06:59 06:59 Intake Total 2300 520 Output Total 1200 800 Balance 1100 -280 - Physical Examination General/Neuro: alert & oriented x3, NAD Neck: no JVD present Lungs: CTA, unlabored respirations Heart: RRR Abdomen: NT/ND Extremities: + edema B (trace) - Telemetry Telemetry Rhythm: NSR, SVT non sust - Labs Result Diagrams: 12/11/17 05:34 12/11/17 05:34 Troponin/CKMB CK-MB (CK-2) 7.6 ng/mL (0-6.6) H* 12/06/17 23:00 Troponin I 0.010 ng/mL (< 0.028) 12/07/17 05:21 - Assessment/Plan 1. Acute on chronic kidney injury 2. Chronic diastolic dysfunction 3. Normal LV EF 4. HTN 5. CKD stage 5 PLAN: - Getting ready for HD. - Fistula to be placed today. - CV stable. No new recs.
[2017-12-11] MEDS ORDERED: Sodium Chloride 0.9% 30 ML ONE (12:48)
[2017-12-11] MEDS ORDERED: Heparin 10,000 UNITS/1 ML VIAL ONE (12:48)
[2017-12-11] MEDS ORDERED: Bupivacaine/Epinephrine 0.25% 30 ML VIAL ONE ×2 (12:48→13:30)
[2017-12-11] MEDS ORDERED: Lidocaine 2% 10 ML INJ ONE (12:48)
[2017-12-11] MEDS ORDERED: Protamine Sulfate 50 MG/5 ML VIAL ONE (12:48)
[2017-12-11] MEDS ORDERED: Heparin 5,000 UNITS/ML VIAL ONE (12:48)
[2017-12-11] MEDS ORDERED: CEFAZOLIN/Water 2 GM/20 ML SYRINGE ONE (12:53)
[2017-12-11] MEDS ORDERED: Fentanyl 100 MCG/2 ML VIAL ONE ×2 (13:36→13:38)
[2017-12-11] MEDS ORDERED: PROPOFOL 40 ML ONE ×2 (13:36→16:12)
[2017-12-11] MEDS ORDERED: Propofol 500 MG/50 ML VIAL ONE (13:36)
[2017-12-11] MEDS ORDERED: Tuberculin PPD 0.1 ML VIAL I-DERMAL SCH (16:00)
[2017-12-11] MEDS ORDERED: Ondansetron HCl/PF 4 MG/2 ML Vial IVP PRN (16:45)
--- NOTE | 2017-12-11 18:02 | RAD ---
SINGLE VIEW CHEST: HISTORY: Chest pain. Dialysis catheter placement. COMPARISON: 12/06/2017 FINDINGS: A single view of the chest shows an enlarged but stable cardiomediastinal silhouette. There is a rig ht IJ dialysis catheter with its tip in the superior vena cava. There is a moderate right and a smal l left pleural effusion. No pneumothorax is seen. IMPRESSION: 1. Cardiomegaly and bilateral pleural effusions. 2. Status post dialysis catheter placement without evidence of complication. POS: RASHMI
--- NOTE | 2017-12-11 18:31 | PRG ---
DATE OF SERVICE: 12/11/2017 SUBJECTIVE: The patient seen and examined, noted with following vital signs. PHYSICAL EXAMINATION: VITAL SIGNS: Afebrile with temperature 98.3, pulse 86, respiratory rate 16, O2 sat 94% with blood pr essure 150/65. HEENT: Unremarkable with moist oral mucosa. NECK: Supple. No conjunctival injection or icterus. CARDIOVASCULAR: First and second heart sounds were heard. RESPIRATORY: Clear to auscultation. DIGESTIVE: Revealed a benign abdomen with positive bowel sounds. EXTREMITIES: No peripheral edema. SKIN: No new gross rash. LYMPHATICS: No peripheral lymphadenopathy. LABORATORY INVESTIGATIONS: Showed a bicarbonate of 16, BUN 111 with a creatinine of 6.7, hemoglobin 9.8, phosphorus 6.7. IMPRESSION: 1. End-stage renal disease. 2. Hyperphosphatemia. 3. Metabolic acidosis, all related to problem #1 above. 4. Anemia of chronic kidney disease. PLAN: 1. The patient to secure dialysis access today, can be initiated on dialysis. 2. Outpatient dialysis placement in progress. computer systems manager consulted. 3. Further management to be dependent on the clinical course.
--- NOTE | 2017-12-11 20:11 | PDOC.PN ---
- Subjective Encounter Start Date: 12/11/17 Encounter Start Time: 19:45 Subjective: f/u for ESRD initiating HD today. States no problems currently and no SOB. - Objective Resuscitation Status: Resuscitation Status FULL:Full Resuscitation MAR Reviewed: Yes Vital Signs & Weight: Vital Signs (12 hours) Temp Pulse Resp BP BP Pulse Ox 12/11/17 11:40 98.3 F 86 16 150/65 H 94 L 12/11/17 10:06 98 155/67 H 12/11/17 10:05 98 155/67 H Weight Admit Weight 174 lb 9.698 oz Weight 165 lb 4.8 oz I&O: 12/10/17 12/11/17 12/12/17 06:59 06:59 06:59 Intake Total 2300 520 Output Total 1200 800 Balance 1100 -280 Result Diagrams: 12/11/17 05:34 12/11/17 05:34 Additional Labs: Accuchecks 12/11/17 12/11/17 12/10/17 10:53 05:41 20:55 POC Glucose 126 H 138 H 175 H Laboratory Tests 12/08/17 12/09/17 12/09/17 05:26 05:02 05:02 Hgb 6.8 L Phosphorus 6.7 H 7.1 H 12/10/17 12/10/17 12/11/17 05:33 05:33 05:34 Hgb 10.4 L Phosphorus 7.3 H 6.7 H Radiology Reviewed by me: Yes (PCXR - bilat pleural effusions, cardiomegaly, HD cath in place) EKG Reviewed by me: Yes (Tele - SR) Phys Exam - Physical Examination Constitutional: NAD HEENT: PERRLA, sclera anicteric, oral pharynx no lesions Neck: no nodes, no JVD, supple, full ROM diminished in bases R chest with tunneled HD catheter in place Respiratory: no wheezing, no rales, no rhonchi S1, S2 Cardiovascular: RRR, no significant murmur, no rub, gallop Gastrointestinal: soft, non-tender, no distention, positive bowel sounds Musculoskeletal: pulses present, edema present Neurological: normal sensation, moves all 4 limbs Psychiatric: A&O x 3 Skin: no rash, normal turgor, cap refill <2 seconds Dx/Plan (1) ESRD (end stage renal disease) on dialysis Code(s): N18.6 - END STAGE RENAL DISEASE; Z99.2 - DEPENDENCE ON RENAL DIALYSIS Status: Acute Comment: HD per Renal service, tolerated first session (2) DM2 (diabetes mellitus, type 2) Status: Chronic 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 [place] use Diabetes mellitus complication status: with kidney complications Diabetes mellitus complication detail: with chronic kidney disease Chronic kidney disease stage : stage 5, not on chronic dialysis Qualified Code(s): E11.22 - Type 2 diabetes mellitus with diabetic chronic kidney disease; N18.5 - Chronic kidney disease, stage 5 Comment: continue accuchecks, insulin sliding scale, check A1C in am (3) HTN (hypertension) Code(s): I10 - ESSENTIAL (PRIMARY) HYPERTENSION Status: Chronic Qualifiers: Hypertension type: essential hypertension Qualified Code(s): I10 - Essential (primary) hypertension Comment: Improved with initiation of HD, optimize BP regimen (4) Metabolic acidosis Code(s): E87.2 - ACIDOSIS Status: Chronic Comment: Secondary to ESRD, monitor as HD initiated - Plan PT/OT, social media manager, out of bed/ambulate, DVT proph w/SCDs Stable overall -: HD per Renal service -: CM for assistance with outpt HD coordination -: Titrate antihypertensives for optimal control -: AM lab: BMP, A1c * .
[2017-12-11] MEDS: HYDROcodone/Acetaminophen 5/325 mg Tablet PO PRN (21:17)
[2017-12-11] MEDS: Atorvastatin Calcium 40 MG TAB PO SCH (21:17)
[2017-12-12] MEDS: Zolpidem Tartrate 5 MG TAB PO PRN ×2 (00:40→22:32)
[2017-12-12] MEDS: HYDROcodone/Acetaminophen 5/325 mg Tablet PO PRN ×3 (03:14→22:31)
[2017-12-12 06:12] LABS: Hemoglobin A1c 5.2 % (4.0-6.0)
[2017-12-12 06:16] LABS: Albumin 2.7 g/dL (3.4-4.8); Anion Gap 14 mmol/L (10-20); BUN (Urea Nitrogen) 70 mg/dL (9.8-20.1); BUN/Creatinine Ratio 14.08; Calc. Creatinine Clearance 13 mL/min (70-130); Calcium 8.3 mg/dL (7.8-10.44); Carbon Dioxide 21 mmol/L (23-31); Chloride 109 mmol/L (98-107); Estimated GFR-MDRD 9; Glucose 129 mg/dL (80-115); Phosphorus 5.4 mg/dL (2.3-4.7); Potassium 4.4 mmol/L (3.5-5.1); Sodium 140 mmol/L (136-145)
[2017-12-12] MEDS: Calcium Acetate 667 MG CAP PO SCH ×3 (10:57→16:29)
[2017-12-12] MEDS: Famotidine 20 MG TAB PO SCH (11:12)
[2017-12-12] MEDS: hydrALAZINE 25 MG TAB PO SCH ×3 (11:13→20:52)
[2017-12-12] MEDS: NIFEdipine XL 90 MG TAB PO SCH (11:14)
[2017-12-12] MEDS: Metoprolol Tartrate 25 MG TAB PO SCH ×2 (11:14→20:52)
[2017-12-12] MEDS: Sodium Bicarbonate Tab 325 MG TAB PO SCH ×2 (11:14→20:51)
[2017-12-12] MEDS: Polyethylene Glycol 3350 17 GM Packet PO SCH (11:17)
--- NOTE | 2017-12-12 16:55 | PDOC.PN ---
- Subjective Encounter Start Date: 12/12/17 Encounter Start Time: 15:15 Subjective: f/u for ESRD completing 2nd HD session today. No new complaints and -: actually feels very good. No fever, SOB, CP. - Objective Resuscitation Status: Resuscitation Status FULL:Full Resuscitation MAR Reviewed: Yes Vital Signs & Weight: Vital Signs (12 hours) Temp Pulse Resp BP BP BP Pulse Ox 12/12/17 16:29 91 174/74 H 12/12/17 16:15 99.3 F 91 18 174/74 H 94 L 12/12/17 12:34 70 12 12/12/17 11:47 79 137/61 12/12/17 11:14 99 192/87 H 12/12/17 11:13 99 192/87 H 12/12/17 11:00 98.7 F 99 18 192/87 H 96 12/12/17 07:40 98.2 F 89 17 167/72 H 95 Weight Admit Weight 174 lb 9.698 oz Weight 165 lb 4.8 oz I&O: 12/11/17 12/12/17 12/13/17 06:59 06:59 06:59 Intake Total 520 Output Total 800 Balance -280 Result Diagrams: 12/11/17 05:34 12/12/17 05:40 Additional Labs: Accuchecks 12/12/17 12/12/17 12/11/17 11:21 05:39 20:43 POC Glucose 104 126 H 100 Laboratory Tests 12/08/17 12/09/17 12/09/17 05:26 05:02 05:02 Hgb 6.8 L Phosphorus 6.7 H 7.1 H 12/10/17 12/10/17 12/11/17 05:33 05:33 05:34 Hgb 10.4 L Phosphorus 7.3 H 6.7 H 12/12/17 05:40 Hgb Phosphorus 5.4 H EKG Reviewed by me: Yes (Tele - SR) Phys Exam - Physical Examination Constitutional: NAD HEENT: PERRLA, sclera anicteric, oral pharynx no lesions Tunneled R IJ HD catheter in place Neck: no nodes, no JVD, supple, full ROM Respiratory: no wheezing, no rales, no rhonchi, clear to auscultation bilateral S1, S2 Cardiovascular: RRR, no significant murmur, no rub, gallop Gastrointestinal: soft, non-tender, no distention, positive bowel sounds Musculoskeletal: no edema, pulses present Neurological: normal sensation, moves all 4 limbs Psychiatric: normal affect, A&O x 3 Skin: no rash, normal turgor, cap refill <2 seconds Dx/Plan (1) ESRD (end stage renal disease) on dialysis Code(s): N18.6 - END STAGE RENAL DISEASE; Z99.2 - DEPENDENCE ON RENAL DIALYSIS Status: Acute Comment: HD per Renal service, tolerated 2nd session, CM assisting for outpt coordination (2) HTN (hypertension) Code(s): I10 - ESSENTIAL (PRIMARY) HYPERTENSION Status: Chronic Qualifiers: Hypertension type: essential hypertension Qualified Code(s): I10 - Essential (primary) hypertension Comment: Improved with initiation of HD, optimize BP regimen (3) Metabolic acidosis Code(s): E87.2 - ACIDOSIS Status: Chronic Comment: Secondary to ESRD, monitor as HD initiated (4) Anemia in CKD (chronic kidney disease) Code(s): N18.9 - CHRONIC KIDNEY DISEASE, UNSPECIFIED; D63.1 - ANEMIA IN CHRONIC KIDNEY DISEASE Status: Chronic Qualifiers: Chronic kidney disease stage: on chronic dialysis Qualified Code(s): N18.6 - End stage renal disease; D63.1 - Anemia in chronic kidney disease; Z99.2 - Dependence on renal dialysis Comment: Continue serial monitoring, nutritional optimization, Procrit weekly - Plan PT/OT, social worker delinquency prevention, out of bed/ambulate, DVT proph w/SCDs Stable currently -: Continue HD per Renal service -: Continue antihypertensive regimen -: Continue Phoslo -: AM lab: BMP * Likely home in 24-48h
--- NOTE | 2017-12-12 18:19 | PRG ---
DATE OF SERVICE: 12/12/2017 SUBJECTIVE: The patient was seen and examined today at dialysis, seems to be tolerating the treatmen ts okay, noted with the following. PHYSICAL EXAMINATION: VITAL SIGNS: Afebrile, temperature 99.3, pulse 91, respiratory rate of 18, blood pressure 174/74. HEENT: Unremarkable. Moist oral mucosa. NECK: Supple, no conjunctival injection or icterus. CARDIOVASCULAR SYSTEM: First and second heart sounds were heard. RESPIRATORY SYSTEM: Clear to auscultation. DIGESTIVE SYSTEM: Revealed a benign abdomen with positive bowel sounds. EXTREMITIES: No peripheral edema. SKIN: No new gross rash. LYMPHATICS: No peripheral lymphadenopathy. IMPRESSION: 1. End-stage renal disease, on hemodialysis. 2. Hypertension, suboptimally controlled. 3. Diabetic nephropathy. PLAN: 1. The patient undergoing dialysis in any graded system. 2. Once patient is accepted by the outpatient dialysis facility. Patient will be good for discharge . 3. Increase the beta pita at this patient in order to optimize the hemodynamics of this patient. 4. Further management to be dependent on the clinical course.
--- NOTE | 2017-12-12 18:34 | PDOC.CTH ---
Cardiology Progress Note - Subjective No new issues. Has tolerated HD yesterday and today without issues. Her only complaint is pain around her fistula site and her tunneled catheter site. - Objective Vital Signs Temp Pulse Resp BP BP BP Pulse Ox 12/12/17 18:22 91 16 94 L 12/12/17 16:29 91 174/74 H 12/12/17 16:15 99.3 F 91 18 174/74 H 94 L 12/12/17 12:34 70 12 12/12/17 11:47 79 137/61 12/12/17 11:14 99 192/87 H 12/12/17 11:13 99 192/87 H 12/12/17 11:00 98.7 F 99 18 192/87 H 96 12/12/17 07:40 98.2 F 89 17 167/72 H 95 Admit Weight 174 lb 9.698 oz Weight 165 lb 4.8 oz 12/11/17 12/12/17 12/13/17 06:59 06:59 06:59 Intake Total 520 Output Total 800 Balance -280 - Physical Examination General/Neuro: alert & oriented x3, NAD Neck: no JVD present Lungs: CTA, unlabored respirations Heart: RRR Abdomen: NT/ND Extremities: + edema B (trace) - Telemetry Telemetry Rhythm: NSR - Labs Result Diagrams: 12/11/17 05:34 12/12/17 05:40 Troponin/CKMB CK-MB (CK-2) 7.6 ng/mL (0-6.6) H* 12/06/17 23:00 Troponin I 0.010 ng/mL (< 0.028) 12/07/17 05:21 - Assessment/Plan 1. Acute on chronic kidney injury 2. Chronic diastolic dysfunction 3. Normal LV EF 4. HTN 5. CKD stage 6 PLAN: - Tolerating HD. - CV stable. No new recs. - Will sign off. please call with any questions.
[2017-12-12] MEDS: Atorvastatin Calcium 40 MG TAB PO SCH (20:52)
[2017-12-13 06:41] LABS: Anion Gap 14 mmol/L (10-20); BUN (Urea Nitrogen) 45 mg/dL (9.8-20.1); Calc. Creatinine Clearance 15 mL/min (70-130); Calcium 8.7 mg/dL (7.8-10.44); Carbon Dioxide 24 mmol/L (23-31); Chloride 105 mmol/L (98-107); Estimated GFR-MDRD 11; Glucose 112 mg/dL (80-115); Potassium 4.1 mmol/L (3.5-5.1); Sodium 139 mmol/L (136-145)
[2017-12-13] MEDS: NIFEdipine XL 90 MG TAB PO SCH (09:13)
[2017-12-13] MEDS: Calcium Acetate 667 MG CAP PO SCH ×3 (09:13→17:21)
[2017-12-13] MEDS ORDERED: Heparin 10,000 UNITS/ 10 ML VIAL ONE (11:00)
[2017-12-13] MEDS: hydrALAZINE 25 MG TAB PO SCH ×3 (11:24→20:37)
[2017-12-13] MEDS: Famotidine 20 MG TAB PO SCH (11:24)
[2017-12-13] MEDS: HYDROcodone/Acetaminophen 5/325 mg Tablet PO PRN ×2 (14:01→22:33)
[2017-12-13] MEDS: Sodium Bicarbonate Tab 325 MG TAB PO SCH ×2 (14:03→21:19)
[2017-12-13] MEDS: Metoprolol Tartrate 25 MG TAB PO SCH ×2 (14:03→20:38)
[2017-12-13] MEDS: Polyethylene Glycol 3350 17 GM Packet PO SCH (14:04)
[2017-12-13] MEDS ORDERED: READ PPD TEST SITE PO SCH (16:00)
--- NOTE | 2017-12-13 16:50 | PDOC.PN ---
- Subjective Encounter Start Date: 12/13/17 Encounter Start Time: 16:20 Subjective: f/u for ESRD initiated on HD. States no problems with HD and feels good. - Objective Resuscitation Status: Resuscitation Status FULL:Full Resuscitation MAR Reviewed: Yes Vital Signs & Weight: Vital Signs (12 hours) Temp Pulse Resp BP BP BP Pulse Ox 12/13/17 15:46 71 145/67 H 12/13/17 15:43 98.9 F 71 18 145/67 H 93 L 12/13/17 13:55 98.7 F 94 19 133/61 95 12/13/17 09:13 97 200/82 H 12/13/17 08:50 99.0 F 97 18 200/82 H 98 12/13/17 07:04 78 16 94 L Weight Admit Weight 174 lb 9.698 oz Weight 160 lb 8 oz I&O: 12/12/17 12/13/17 12/14/17 06:59 06:59 06:59 Intake Total 970 Output Total 850 Balance 120 Result Diagrams: 12/11/17 05:34 12/13/17 05:39 Additional Labs: Accuchecks 12/13/17 12/12/17 12/12/17 05:32 20:40 17:16 POC Glucose 118 H 169 H 136 H Laboratory Tests 12/08/17 12/09/17 12/09/17 05:26 05:02 05:02 Hgb 6.8 L Hemoglobin A1c Phosphorus 6.7 H 7.1 H 12/10/17 12/10/17 12/11/17 05:33 05:33 05:34 Hgb 10.4 L Hemoglobin A1c Phosphorus 7.3 H 6.7 H 12/12/17 12/12/17 05:40 05:40 Hgb Hemoglobin A1c 5.2 Phosphorus 5.4 H EKG Reviewed by me: Yes (Tele - SR) Phys Exam - Physical Examination Constitutional: NAD HEENT: PERRLA, sclera anicteric, oral pharynx no lesions Neck: no nodes, no JVD, supple, full ROM Respiratory: no wheezing, no rales, no rhonchi, clear to auscultation bilateral S1, S2 Cardiovascular: RRR, no significant murmur, no rub, gallop Gastrointestinal: soft, non-tender, no distention, positive bowel sounds Musculoskeletal: no edema, pulses present Neurological: non-focal, normal sensation, moves all 4 limbs Psychiatric: normal affect, A&O x 3 Skin: no rash, normal turgor, cap refill <2 seconds Dx/Plan (1) ESRD (end stage renal disease) on dialysis Code(s): N18.6 - END STAGE RENAL DISEASE; Z99.2 - DEPENDENCE ON RENAL DIALYSIS Status: Acute Comment: HD per Renal service, tolerated each session, CM assisting for outpt coordination (2) HTN (hypertension) Code(s): I10 - ESSENTIAL (PRIMARY) HYPERTENSION Status: Chronic Qualifiers: Hypertension type: essential hypertension Qualified Code(s): I10 - Essential (primary) hypertension Comment: Improved with initiation of HD, optimize BP regimen (3) Metabolic acidosis Code(s): E87.2 - ACIDOSIS Status: Chronic Comment: Secondary to ESRD, monitor as HD initiated (4) Anemia in CKD (chronic kidney disease) Code(s): N18.9 - CHRONIC KIDNEY DISEASE, UNSPECIFIED; D63.1 - ANEMIA IN CHRONIC KIDNEY DISEASE Status: Chronic Qualifiers: Chronic kidney disease stage: on chronic dialysis Qualified Code(s): N18.6 - End stage renal disease; D63.1 - Anemia in chronic kidney disease; Z99.2 - Dependence on renal dialysis Comment: Continue serial monitoring, nutritional optimization, Procrit weekly - Plan plan discussed w/ family, social work case manager, out of bed/ambulate, DVT proph w/SCDs Stable overall -: HD per Renal service -: CM assisting with outpt referral for HD -: Continue Phoslo -: Continue Sodium Bicarbonate * Likely home in 24h
--- NOTE | 2017-12-13 18:14 | PDOC.OP ---
Operative Note - Operative Note Operative Note: PROCEDURE: Placement of right internal jugular tunneled hemodialysis catheter with ultrasound and fluoroscopic guidance and left Charlie AV fistula. SURGEON: Janet Johns M.D. DATE OF PROCEDURE: 12/11/2017 PREOPERATIVE DIAGNOSIS: Acute/Chronic renal failure. POSTOPERATIVE DIAGNOSIS: Acute/Chronic renal failure. HISTORY: Patient with acute on chronic renal failure. A tunneled hemodialysis catheter for ongoing dialysis and an AV fistula for long-term access have been requested by the patients heating unit mechanic. PROCEDURE: After informed consent was obtained and appropriate preoperative antibiotics were administered, the patient was taken to the Operating Room, placed in the supine position and monitored anesthesia care was administered. The neck and chest were prepped and draped in a standard sterile fashion and the patient placed in Trendelenburg position. A sterile ultrasound probe was used to identify the patent compressible right IJ vein which was accessed under direct ultrasound guidance. A wire was threaded through the needle and confirmed by ultrasound to be within the patent compressible vessel with the tip in the vena cava by fluoroscopy. Local anesthesia was infused to the skin and subcutaneous tissues of the right neck and chest. An infraclavicular incision was made and a catheter tunneled from the infraclavicular to the right IJ access site. The right IJ was sequentially dilated over the wire following which a dilator and sheath were placed over the wire and the dilator and wire removed leaving the sheath in place. The catheter was tunneled through the sheath which was then split and removed leaving the catheter in place. This was confirmed by fluoroscopy to be in good position in the superior vena cava with no kinking of the course of the catheter. Both ports easily aspirated dark venous nonpulsatile blood and easily flushed without resistance. Heparin was instilled to the quantity specified on the hub, and the hub was secured to the skin with 3-0 nylon sutures. The skin incision at the neck was closed in two layers with 4-0 Monocryl suture and Dermabond dressings were placed. The skin at the exit site was snugged up around the catheter with 4-0 Monocryl suture and Dermabond was placed there as well. Once the Dermabond was dry, a Biopatch and Tegaderm dressing was placed at the exit site. Attention was then turned to creation of the left Charlie fistula. A preoperative block had been performed by Anesthesia and the adequacy of block was confirmed. The arm was prepped and draped in a standard sterile fashion and an incision made between the palpable cephalic vein and radial artery. Dissection was carried out to the cephalic vein, but this was too small to support a fistula so another branch of the cephalic vein was identified on the dorsum of the hand and an incision made over this. It was examined and appeared to be of adequate quality and caliber to support a fistula. This was marked for orientation, dissected free circumferentially, ligated, and divided distally , and spatulated with Pham scissors. This was serially interrogated with cardiac dilators but would not accept any larger than a 2.5 mm dilator. The vein appeared to be much larger in caliber. Some eaters proximally so the incision was extended and the vein marked for orientation and dissected free at a higher level. This was spatulated and serially interrogated with cardiac dilators and easily accepted up to a 3.5 mm cardiac dilator. This was flushed with heparinized saline and clamped with a bulldog clamp. A third incision was then made over the radial artery medial to this vein. The radial artery was dissected free and found to be of adequate quality and caliber to support a fistula. A subcutaneous tunnel was created and the vein carefully drawn through this tunnel taking care not to twist or kink the vein. Heparin was administered systemically and allowed to circulate for 3 minutes following which the radial artery was clamped proximally and distally. An anterior arteriotomy was created with an 11 blade scalpel and extended with Pham scissors. An end-to- side anastomosis created with a running 6-0 Prolene suture with excellent technical result. Prior to tying down the anastomosis, the inflow was released to flush the anastomosis. Flow was established first through the fistula and then through the distal radial artery. Hemostasis at the site was confirmed, and an excellent thrill was felt in the cephalic vein outflow and an excellent bruit was heard with Doppler as well up to the proximal forearm. Hemostasis at the various operative site was again confirmed. The incisions were closed with a running 3-0 subcutaneous and running 4-0 subcuticular Monocryl sutures. Dermabond dressings were placed and the patient was taken to the recovery room in good condition. Estimated blood loss was minimal. There were no complications. There were no specimens.
[2017-12-13] MEDS: Atorvastatin Calcium 40 MG TAB PO SCH (20:38)
[2017-12-13] MEDS: Zolpidem Tartrate 5 MG TAB PO PRN (22:33)
--- NOTE | 2017-12-14 02:52 | PRG ---
DATE OF SERVICE: 12/13/2017 SUBJECTIVE: The patient was seen and examined today, feeling much better, noted with the following v ital signs. PHYSICAL EXAMINATION: VITAL SIGNS: Afebrile, temperature 98.9, pulse 71, respiratory rate of 18, blood pressure 145/67. HEENT: Unremarkable. Moist oral mucosa. No conjunctival injection or icterus. NECK: Supple. CARDIOVASCULAR: First and second heart sounds were heard. RESPIRATORY: Clear to auscultation. DIGESTIVE: Benign abdomen with positive bowel sounds. EXTREMITIES: No peripheral edema. SKIN: No new gross rash. LYMPHATICS: No peripheral lymphadenopathy. IMPRESSION: 1. End-stage renal disease, hemodialysis dependent, recently initiated on hemodialysis. 2. Anemia of chronic kidney disease. 3. Diabetic nephropathy. PLAN: The patient is already approved for outpatient dialysis placement. Therefore, the patient fro m the renal standpoint is good for discharge. The plan will be for this patient to be discharged zack orrow after dialysis and to continue with Monday, , and Monday schedule. The patient is e xpected to go to dialysis unit all the necessary papers in preparation for continuation of zac l replacement therapy. Condition of patient at this time of dictation is good. Further management to be dependent on the cl inical course.
[2017-12-14] MEDS: hydrALAZINE 20 MG/ML VIAL SLOW IVP PRN (03:37)
[2017-12-14 04:30] VITALS: TEMP 98.6
[2017-12-14] MEDS ORDERED: Heparin 10,000 UNITS/ 10 ML VIAL ONE (09:00)
[2017-12-14] MEDS: Calcium Acetate 667 MG CAP PO SCH ×2 (11:41→12:24)
[2017-12-14] MEDS: Famotidine 20 MG TAB PO SCH (12:22)
[2017-12-14] MEDS: hydrALAZINE 25 MG TAB PO SCH ×2 (12:22→15:35)
[2017-12-14] MEDS: NIFEdipine XL 90 MG TAB PO SCH (12:23)
[2017-12-14] MEDS: Metoprolol Tartrate 25 MG TAB PO SCH (12:23)
[2017-12-14] MEDS: Sodium Bicarbonate Tab 325 MG TAB PO SCH (12:24)
[2017-12-14] MEDS: Polyethylene Glycol 3350 17 GM Packet PO SCH (12:26)
--- NOTE | 2017-12-14 13:40 | DIS ---
DATE OF ADMISSION: 12/07/2017 DATE OF DISCHARGE: 12/14/2017 DISCHARGE DIAGNOSES: 1. End-stage renal disease with current hemodialysis. 2. Hypertension, labile. 3. Metabolic acidosis secondary to #1, improved. 4. Anemia in chronic kidney disease, stable. 5. Status post right internal jugular tunneled hemodialysis catheter placement on 12/11/2017. 6. Status post left upper extremity Charlie AV fistula placement on 12/11/2017. CONSULTATIONS: 1. Dr. Johns with General Surgery Service. 2. Dr. Ca with Cardiology Service. 3. Dr. Radhika Gross with Nephrology Service. PERTINENT LABORATORY AND X-RAY FINDINGS: Creatinine ranged between 4.18 to 6.77 estimated GFR rangin g between 6-11. Hemoglobin A1c 5.2, phosphorus ranged between 5.4 to 7.3, serum iron 55, TIBC 318, f erritin 30. BNP 245, vitamin B12 level 447. Folate 8.0. PTH 207. Magnesium level 2.4. CBC showed a hemoglobin ranging between 6.8-10.4. Hepatitis B panel negative. Hepatitis C antibody nonreactiv e. A 2D transthoracic echocardiogram dated 12/09/2017 showed ejection fraction of 60-65%. Probable diastolic dysfunction noted. Moderate left atrial enlargement. HOSPITAL COURSE: The patient was initially admitted who initially presented with chest pain and shor tness of breath. The patient underwent general evaluation and noted to be in volume overload in the context of end-stage renal disease. The patient was initially managed with IV Lasix in the emergency department on the telemetry unit and was noted with labile hypertension. The patient was placed on multiple antihypertensive medications and evaluated by the Cardiology and Nephrology Service. Due to the patient's worsening renal function and uncontrolled hypertension the patient was deemed an appro priate candidate to initiate hemodialysis. The patient underwent a tunneled right internal jugular h emodialysis catheter placement as well as a left upper extremity AV fistula placement per [facility]. The patient initiated hemodialysis, completing approximately 4 sessions prior to disch arge. The patient rapidly clinically improved as far as volume status and respiratory function and r emained clinically stable in the telemetry unit. The patient underwent 2D transthoracic echocardiogr am evaluation showing overall preserved ejection fraction and likely diastolic dysfunction. The jaelyn ent's volume overload mitigated due to end-stage renal disease. The patient overall remained clinica lly stable during the remainder the hospital course with telemetry monitoring showing sinus mechanism throughout the hospital course. I have examined the patient at the time of discharge and discussed followup instructions as well as plans for outpatient hemodialysis. The patient verbalized understan ding and agreement and ready for discharge on 12/14/2017. DISCHARGE MEDICATIONS: 1. Alendronate 70 mg p.o. q. weekly. 2. Norvasc 10 mg p.o. daily. 3. Lipitor 40 mg p.o. at bedtime. 4. Clonidine 0.1 mg p.o. q.6 hours p.r.n. systolic blood pressure over 170. 5. Ferrous sulfate 325 mg p.o. b.i.d. 6. Hydralazine 25 mg p.o. t.i.d. 7. [place] 5/325 mg 1 tab p.o. q.6. p.r.n. pain. 8. Metoprolol tartrate 25 mg p.o. b.i.d. 9. PhosLo 1334 mg p.o. t.i.d. with meals. 10 Procardia-XL 90 mg p.o. daily. 11. Sodium bicarbonate 650 mg p.o. b.i.d. FOLLOWUP: The patient will follow up with her primary care provider, Dr. Dickson Grady within 7 da ys of discharge. The patient will follow up with Dr. Radhika Gross and to call his office for appointment time and date. The patient will follow up with Dr. Johns with General Surgery Service 2-3 weeks after discharge. CONDITION ON DISCHARGE: Stable. ACTIVITY: Ad zuleyka. DIET: Renal and heart healthy. SPECIAL INSTRUCTIONS: Patient to follow up with [facility] on Tuesdays, , and Mon. CONDITION AT THE TIME OF DISCHARGE: Stable. CODE STATUS: Full. DISPOSITION: Home on 12/14/2017. Total time preparing and coordinating discharge is 37 minutes.
[2017-12-14 14:17] VITALS: BMI 28.5
--- NOTE | 2017-12-14 14:37 | PRG ---
DATE OF SERVICE: 12/14/2017 SUBJECTIVE: The patient seen and examined today at dialysis, doing very well. OBJECTIVE: VITAL SIGNS: Afebrile with temperature 98.6, pulse 97, respiratory rate 20, O2 sat , blood pres sure 188/90. HEENT: Unremarkable with moist oral mucosa. NECK: Supple. No conjunctival injection or icterus. CARDIOVASCULAR: First and second heart sounds were heard. RESPIRATORY: Clear to auscultation. DIGESTIVE: Revealed a benign abdomen with positive bowel sounds. EXTREMITIES: No peripheral edema. SKIN: No new gross rash. LYMPHATICS: No peripheral lymphadenopathy. IMPRESSION: 1. End-stage renal disease, hemodialysis dependent. 2. Anemia of chronic kidney disease. 3. Diabetic nephropathy. PLAN: 1. The patient after dialysis today is likely to be discharged to continue with outpatient dialysis on a Monday, , Monday schedule. 2. Further management to be dependent on the clinical course.
[2017-12-14] MEDS ORDERED: Ondansetron ODT 4 MG TAB PO SCH (15:15)
[2017-12-14] MEDS: Epoetin (ESRD) 20,000 UNITS/ML SC SCH (15:34)
[2017-12-14 15:41] VITALS: BP 149/67
== END 2017-12-14 18:08 | disposition home or self-care (01) | DRG 291 ==
LOC: ERS 21:08 → 2NO 12-07 00:58
PROVIDERS: ADMIT Internal Medicine; ATTEND Internal Medicine
PROC: 05HM33Z Insertion of Infusion Device into Right Internal Jugular Vein, Percutaneous Approach (ICD-10-PCS; principal; 2017-12-11)
DX: I13.0 Hypertensive heart and chronic kidney disease with heart failure and stage 1 through stage 4 chronic kidney disease, or unspecified chronic kidney disease (principal); I50.31 Acute diastolic (congestive) heart failure; N18.6 End stage renal disease; E87.2 Acidosis; N17.9 Acute kidney failure, unspecified; E11.22 Type 2 diabetes mellitus with diabetic chronic kidney disease; E78.5 Hyperlipidemia, unspecified; J45.909 Unspecified asthma, uncomplicated; Z79.899 Other long term (current) drug therapy; Z79.891 Long term (current) use of opiate analgesic; D50.9 Iron deficiency anemia, unspecified; E11.21 Type 2 diabetes mellitus with diabetic nephropathy; D63.8 Anemia in other chronic diseases classified elsewhere; E83.39 Other disorders of phosphorus metabolism; Z87.891 Personal history of nicotine dependence; Z79.82 Long term (current) use of aspirin
CPT/HCPCS: 36415; 36416; 36430; 71045; 71046; 80048; 80053; 80069; 82553; 82607; 82728; 82746; 83036; 83540; 83550; 83735; 83880; 83970; 84484; 85014; 85018; 85025; 85046; 86580; 86704; 86706; 86803; 86850; 86900; 86901; 87340; 90935; 93005; 93306; 93798; 93970; 94640; 96374; 96375; A4216; C1752; C1769; G0257; G0365; J0360; J1644; J1815; J1940; J2704; J2720; J2916; J2920; J2930; J3010; J7050; J7620; P9016; Q0162; Q4081